=== PATIENT | male | born 1960 | race Asian ===

== ENCOUNTER 2019-05-03 13:27 | Inpatient (IN) | payer OTHER ==
--- OUTSIDE RECORDS SUMMARY | 2019-05-03 13:40 | XMS REPORT | Continuity of Care Document ---
:1960 External Reference #:[id number] Author Name Donald Greenberg M.D. (transmitted by agent of provider Apryl Krishnan) Address [address], [place] [address] Problems Active Problems Provider Date Benign essential hypertension Donald Greenberg M.D. Onset: 01/02/2011 Mixed hyperlipidemia Donald Greenberg M.D. Onset: 01/02/2011 Impaired fasting glycaemia Donald Greenberg M.D. Onset: 07/04/2011 Essential hypertension Donald Greenberg M.D. Onset: 01/27/2015 Type 2 diabetes mellitus Donald Greenberg M.D. Onset: 07/10/2017 Social History Type Date Description Comments Sex Unknown Tobacco Use Start: Unknown Never Smoked Cigarettes ETOH Use 01/05/2013 Rarely consumes alcohol Tobacco Use Start: Unknown Patient has never smoked Smoking Status Reviewed: 04/15/19 Patient has never smoked Exercise Type/Frequency Exercises regularly Exercise Type/Frequency ice hockey 3x/week,walks on occ. Allergies, Adverse Reactions, Alerts Description No Known Drug Allergies Medications Active Medications SIG Qnty Indications Ordering Provider Date Atorvastatin Calcium take 1 tablet by 90tabs E78.2 Donald Greenberg, 02/26 10mg mouth at bedtime M.D. Tablets Ramipril Take 1 Capsule 90caps Donald Greenberg, 11/06/2010 10mg Capsules By Mouth Every M.D. Evening Amlodipine Besylate Take 1 Tablet By 90tabs I10 Donald Greenberg, 2008 10mg Mouth Daily M.D. Tablets Co Q 10 Unknown Centrum Silver Ultra 1 po qd Unknown Mens Tablets Fish Oil 2 po qd Unknown Capsules Medications Administered in Office Medication SIG Qnty Indications Ordering Provider Date Influenza Virus Vaccine Unknown 12/22/2014 Injection Influenza Virus Vaccine Unknown 12/22/2013 Injection Influenza Virus Vaccine Unknown 12/22/2012 Injection Immunizations CPT Code Status Date Vaccine Lot # [id number] Given 12/24/2017 Influenza Virus Vaccine, Quadrivalent, Split, Preservative Free 63094 Given 12/23/2015 Influ Virus Vaccine, Quadrivalent, Split Virus, [place] [address] Given 07/07/2014 Tdap - Tetanus/Diptheria/Acellular Pertussis [id number] 54829 Given 03/26/2004 Td Toxoids Adsorbed For Use 7Yrs Or Older For Intramuscular Use 77647 Given 01/30/2000 Td (History By Patient) 67973 Given Unknown Tetanus And Diptheria (Td) For Adult Use Preservative Free Vital Signs Date Vital Result Comment 04/15/2019 2:14pm Height 66.4 inches 5'6.40" Weight 174.00 lb Heart Rate 77 /min BP Systolic Sitting 132 mmHg BP Diastolic Sitting 83 mmHg BMI (Body Mass Index) 27.7 kg/m2 02/02/2019 9:10am Height 66.4 inches 5'6.40" Weight 176.00 lb Heart Rate 76 /min BP Systolic Sitting 124 mmHg BP Diastolic Sitting 80 mmHg BMI (Body Mass Index) 28.1 kg/m2 Results Description No Information Available Procedures Date Code Description Status 03/10/2019 [id number] Diabetic Retinal Eye Exam Completed 01/02/2018 [id number] Diabetic Retinal Eye Exam Completed 12/30/2013 [id number] Diabetic Retinal Eye Exam Completed 08/16/2011 [id number] Colonoscopy Completed Medical Devices Description No Information Available Encounters Type Date Location Provider Dx Diagnosis Office Visit 02/02/2019 [facility] Donald Greenberg, I10 Essential ( primary) 9:00a [facility] - [facility] SarahDAlicia hypertension E78.2 Mixed hyperlipidemia R73.01 Impaired fasting glucose M25.522 Pain in left elbow Office Visit 01/15/2019 8:30a [facility] Ofelia Jordan M25.522 Pain in left Medicine - [facility] MD elbow Assessments Date Code Description Provider 04/15/2019 K30 Functional dyspepsia Donald Greenberg M.D. 02/02/2019 I10 Essential (primary) hypertension Donald Greenberg M.D. 02/02/2019 E78.2 Mixed hyperlipidemia Donald Greenberg M.D. 02/02/2019 R73.01 Impaired fasting glucose Donald Greenberg M.D. 02/02/2019 M25.522 Pain in left elbow Donald Greenberg M.D. 01/15/2019 M25.522 Pain in left elbow Ofelia Jordan MD Plan of Treatment Future Appointment(s):08/04/2019 9:20 am - [facility] Green[facility] M.D.K30 Functional dyspepsiaNew Xrays:Abdomen/KUB 1 VW, Ordered: 04/15/19 Functional Status Description No Information Available Mental Status Description No Information Available Referrals Description No Information Available
--- OUTSIDE RECORDS SUMMARY | 2019-05-03 13:40 | XMS REPORT | Continuity of Care Document ---
:1960 External Reference #:[id number] Author Name Lauren Moncada NP (transmitted by agent of provider Lexy Felipe ) Address [address] [place] [address] Problems Active Problems Provider Date Benign essential [...] Use Start: Unknown Patient has never smoked Recreational Drug Use Denies Drug Use Smoking Status Reviewed: 05/03/19 Patient has never smoked Exercise Type/Frequency Exercises regularly Exercise Type/Frequency ice hockey 3x/week,walks on occ. Allergies, Adverse Reactions, Alerts Description No Known Drug Allergies Medications Active Medications SIG Qnty Indications Ordering Date Provider Atorvastatin Calcium take 1 tablet by 90tabs E78.2 Donald Matamoros 02/26/2013 mouth at bedtime Jane Greenberg 10mg Tablets Ramipril Take 1 Capsule By 90caps Donald Matamoros 11/06/2010 10mg Capsules Mouth Every Jane Greenberg Evening Amlodipine Besylate Take 1 Tablet By 90tabs I10 Donald Matamoros 11/25/2008 Mouth Daily Jane Greenberg 10mg Tablets Co Q 10 Unknown Centrum Silver Ultra 1 po qd Unknown Mens Tablets Fish Oil 2 po qd Unknown Capsules Prilosec OTC take one tab by Unknown 20mg mouth daily while Tablets DR taking prednisone Simethicone one by mouth every Unknown 125mg 6hours Capsules Medications Administered in Office Medication SIG Qnty Indications Ordering Provider Date Influenza Virus Vaccine Unknown 12/22/2014 Injection Influenza Virus Vaccine Unknown 12/22/2013 Injection Influenza Virus Vaccine Unknown 12/22/2012 Injection Immunizations CPT Code Status Date Vaccine Lot # [id number] Given 12/24/2017 Influenza Virus Vaccine, Quadrivalent, Split, Preservative Free 15348 Given 12/23/2015 Influ Virus Vaccine, Quadrivalent, Split Virus, [place] [address] Given 07/07/2014 Tdap - Tetanus/Diptheria/Acellular Pertussis [id number] 72171 Given 03/26/2004 Td Toxoids Adsorbed For Use 7Yrs Or Older For Intramuscular Use 21201 Given 01/30/2000 Td (History By Patient) 10931 Given Unknown Tetanus And Diptheria (Td) For Adult Use Preservative Free Vital Signs Date Vital Result Comment 05/03/2019 12:07pm Height 66.4 inches 5'6.40" Weight 151.00 lb Heart Rate 105 /min BP Systolic 131 mmHg BP Diastolic 88 mmHg Respiratory Rate 16 /min O2 % BldC Oximetry 98 % BMI (Body Mass Index) 24.1 kg/m2 04/28/2019 3:10pm Height 66.4 inches 5'6.40" Weight 160.50 lb Heart Rate 78 /min BP Systolic Sitting 149 mmHg BP Diastolic Sitting 88 mmHg O2 % BldC Oximetry 96 % BMI (Body Mass Index) 25.6 kg/m2 Results Test Acquired Date Facility Test Result H/L Range Note CBC Auto 04/28/2019 [facility] White Blood 6.6 10^3/uL Normal 3.5-10.[address] [place] [address] [phone] Red Blood Count 5.03 10^6/uL Normal 4.18-5.48 Hemoglobin 15.7 g/dL Normal 14.0-18.0 Hematocrit 44 % Normal 42-52 Mean Corpuscular Volume 88 fL Normal 80-94 Mean Corpuscular Hemoglobin 31 pg Normal 27-31 Mean Corpuscular HGB Conc 36 g/dL Normal 31-36 Red Cell Distribution Width 14 % Normal 10-15 Platelet Count 221 10^3/uL Normal 150-450 Mean Platelet Volume 10.2 fL Normal 7.4-10.4 Abs Neutrophils 3.4 10^3/uL Normal 1.5-7.7 Abs Lymphocytes 2.4 10^3/uL Normal 1.0-4.8 Abs Monocytes 0.6 10^3/uL Normal 0-0.8 Abs Eosinophils 0.1 10^3/uL Normal 0-0.6 Abs Basophils 0.1 10^3/uL Normal 0-0.2 Abs Nucleated RBC 0.0 10^3/uL Granulocyte % 52.2 % Lymphocyte % 36.9 % Monocyte % 8.4 % Eosinophil % 1.7 % Basophil % 0.8 % Nucleated Red Blood Cells % 0.1 Comp Metabolic 04/28/2019 [facility] Sodium 136 mmol/L Normal 135-[address] [place] [address] [phone] Potassium 4.9 mmol/L Normal 3.5-5.0 Chloride 95 mmol/L Low 101-111 Co2 Carbon Dioxide 30 mmol/L Normal 22-32 Anion Gap 11 mmol/L Normal 2-11 Glucose 81 mg/dL Normal 70-100 Blood Urea Nitrogen 28 mg/dL High 6-24 Creatinine 1.22 mg/dL High 0.67-1.17 BUN/Creatinine Ratio 23.0 High 8-20 Calcium 10.5 mg/dL High 8.6-10.3 Total Protein 8.0 g/dL Normal 6.4-8.9 Albumin 4.7 g/dL Normal 3.2-5.2 Globulin 3.3 g/dL Normal 2-4 Albumin/Globulin Ratio 1.4 Normal 1-3 Total Bilirubin 1.00 mg/dL Normal 0.2-1.0 Alkaline Phosphatase 88 U/L Normal 34-104 Alt 29 U/L Normal 7-52 Ast 26 U/L Normal 13-39 Egfr Non- 61.0 >60 Egfr 73.8 >60 1 Laboratory test 04/28/2019 [facility] C Reactive < 1.00 Normal <8.[address] Protein mg/[place] [address] [phone] Erythrocyte Sed Rate 25 mm/Hr High 0-19 1 Because ethnic data is not always readily available, this report includes an eGFR for both -Americans and non- Americans. The National Kidney Disease Education Program (NKDEP) does not endorse the use of the MDRD equation for patients that are not between the ages of 18 and 70, are , have extremes of body size, muscle mass, or nutritional status, or are non- or non-. According to the National Kidney Foundation, irrespective of diagnosis, the stage of the disease is based on the level of kidney function: Stage Description GFR(mL/min/1.73 m(2)) 1 Kidney damage with normal or decreased GFR 90 2 Kidney damage with mild decrease in GFR 60-89 3 Moderate decrease in GFR 30-59 4 Severe decrease in GFR 15-29 5 Kidney failure <15 (or dialysis) Procedures Date Code Description Status 03/10/2019 [id number] Diabetic Retinal Eye Exam Completed 01/02/2018 [id number] Diabetic Retinal Eye Exam Completed 12/30/2013 [id number] Diabetic Retinal Eye Exam Completed 08/16/2011 [id number] Colonoscopy Completed Medical Devices Description No Information Available Encounters Type Date Location Provider Dx Diagnosis Office Visit 04/28/2019 [facility] Donald Matamoros R11.2 Nausea with 3:00p Randall Greenberg M.D. vomiting, unspecified Office Visit 04/15/2019 [facility] Donald Matamoros K30 Functional dyspepsia 2:00p Randall Greenberg M.D. Office Visit 02/02/2019 [facility] Donald Matamoros I10 Essential (primary) 9:00a Randall Greenberg M.D. hypertension E78.2 Mixed hyperlipidemia R73.01 Impaired fasting glucose M25.522 Pain in left elbow Office Visit 01/15/2019 8:30a [facility] Ofelia Jordan M25.522 Pain in left Medicine - [facility] SCOTT elbow Assessments Date Code Description Provider 04/28/2019 R11.2 Nausea with vomiting, unspecified Donald Greenberg M.D. 04/15/2019 K30 Functional dyspepsia Donald Greenberg M.D. 02/02/2019 I10 Essential (primary) hypertension Donald Greenberg M.D. 02/02/2019 E78.2 Mixed hyperlipidemia Donald Greneberg M.D. 02/02/2019 R73.01 Impaired fasting glucose Donald Greenberg M.D. 02/02/2019 M25.522 Pain in left elbow Donald Greenberg M.D. 01/15/2019 M25.522 Pain in left elbow Ofelia Jordan MD Plan of Treatment Future Appointment(s):08/04/2019 9:20 am - Donald Greenberg M.D. at [facility] Internal Medicine - [facility] Functional Status Description No Information Available Mental Status Description No Information Available Referrals Refer to Dr Reason for Referral Status Appt Date Macario Pérez MD New N/V, bloating sx noted hours after meals. Sent 2019 (+) resultant decreased appetite and weight loss [address] [facility] [place] [id number] [phone]
--- OUTSIDE RECORDS SUMMARY | 2019-05-03 13:40 | XMS REPORT | Continuity of Care Document ---
:1960 External Reference #:[id number] Author Name Donald Greenberg M.D. (transmitted by agent of provider Alana Mederos) Address [address], [place] [address] Problems Active Problems Provider Date Benign essential [...] Patient has never smoked Smoking Status Reviewed: 04/28/19 Patient has never smoked Exercise Type/Frequency Exercises [...] CPT Code Status Date Vaccine Lot # [id number] Given 12/24/2017 Influenza Virus Vaccine, Quadrivalent, Split, Preservative Free 23391 Given 12/23/2015 Influ Virus Vaccine, Quadrivalent, Split Virus, [place] [address] Given 07/07/2014 Tdap - Tetanus/Diptheria/Acellular Pertussis [id number] 10983 Given 03/26/2004 Td Toxoids Adsorbed For Use 7Yrs Or Older For Intramuscular Use 92482 Given 01/30/2000 Td (History By Patient) 16707 Given Unknown Tetanus And Diptheria (Td) For Adult Use Preservative Free Vital Signs Date Vital Result Comment 04/28/2019 3:10pm Height 66.4 inches 5'6.40" Weight 160.50 lb Heart Rate 78 /min BP Systolic Sitting 149 mmHg BP Diastolic Sitting 88 mmHg O2 % BldC Oximetry 96 % BMI (Body Mass Index) 25.6 kg/m2 04/15/2019 2:14pm Height 66.4 inches 5'6.40" Weight 174.00 lb Heart Rate 77 /min BP Systolic Sitting 132 mmHg BP Diastolic Sitting 83 mmHg BMI (Body Mass Index) 27.7 kg/m2 Results Description No Information Available Procedures Date Code Description Status 03/10/2019 [id number] Diabetic Retinal Eye Exam Completed 01/02/2018 [id number] Diabetic Retinal Eye Exam Completed 12/30/2013 [id number] Diabetic Retinal Eye Exam Completed 08/16/2011 [id number] Colonoscopy Completed Medical Devices Description No Information Available Encounters Type Date Location Provider Dx Diagnosis Office Visit 02/02/2019 [facility] Internal Donald Greenberg, I10 Essential ( primary) 9:00a Medicine - [facility]y Lara hypertension E78.2 Mixed hyperlipidemia R73.01 Impaired fasting glucose M25.522 Pain in left elbow Office Visit 01/15/2019 8:30a [facility] Internal Ofelia Jordan M25.522 Pain in left Medicine - [facility] elbow Assessments Date Code Description Provider 04/28/2019 [...] 9:20 am - Donald [facility] Donald Greenberg M.D.R11.2 Nausea with vomiting, unspecifiedReferral:Macario Pérez MD, Gastroenterology Functional Status Description No Information Available Mental Status Description No Information Available Referrals Refer to Reason for Referral Status Appt Date Macario Pérez MD Created [address] [place] [address] [phone]
[2019-05-03] MEDS ORDERED: Ondansetron INJ* 2 MG/ML VIAL IV ONE ×2 (15:04→15:14)
[2019-05-03] MEDS ORDERED: NS 0.9% 1000 ML** 1,000 ML IV ONE ×2 (15:04→17:01)
--- NOTE | 2019-05-03 15:21 | ED ---
Nausea/Vomiting/Diarrhea HPI - HPI Summary HPI Summary: Patient complains of persistent nausea and vomiting 2.5 weeks, 23 pound weight loss in 2.5 weeks. Rarely able to tolerate fluids or solids. Also states no substantial BM in 2 weeks. Patient was evaluated by GI today who sent patient to ED for further evaluation of possible dehydration and bowel obstruction. Denies fever, cough, sore throat, CP, SOB, abdominal pain, change in urine, penile or testicular symptoms. Denies prior history of constipation. Medical history is borderline DM with no medications, HDL, HTN. Abdominal surgical history is none. - History of Current Complaint Chief Complaint: EDGeneral Stated Complaint: VOMITING/POSS BOWEL OBSTRUCTION PER PT Time Seen by Provider: 05/03/19 14:57 Hx Obtained From: Patient Onset/Duration: Gradual Onset, Lasting Weeks Timing: Constant Severity Currently: None Pain Intensity: 0 Pain Scale Used: 0-10 Numeric Aggravating Factor(s): Food Alleviating Factor(s): Nothing - Allergies/Home Medications Allergies/Adverse Reactions: Allergies Allergy/AdvReac Type Severity Reaction Status Date / Time No Known Allergies Allergy Verified 05/03/19 15:34 Home Medications: Home Medications Atorvastatin* [Lipitor*] 10 mg PO DAILY 05/03/19 [History Confirmed 05/03/19] Ramipril CAP* [Altace CAP*] 10 mg PO DAILY 05/03/19 [History Confirmed 05/03/19] amLODIPine TAB* [Norvasc 5 mg TAB*] 10 mg PO DAILY 05/03/19 [History Confirmed 05/03/19] PMH/Surg Hx/FS Hx/Imm Hx Endocrine/Hematology History: Denies: Hx Anticoagulant Therapy Cardiovascular History: Denies: Hx Pacemaker/ICD History: Denies: Hx Dialysis Sensory History: Denies: Hx Eye Prosthesis Opthamlomology History: Denies: Hx Legally Blind EENT History: Denies: Hx Deafness Neurological History: Denies: Hx Dementia Infectious Disease History: No Infectious Disease History: Denies: Traveled Outside the [place] in Last 30 Days - Family History Known Family History: Positive: Non-Contributory - Social History Alcohol Use: Occasionally Hx Substance Use: No Hx Tobacco Use: No Review of Systems Constitutional: Negative Eyes: Negative ENT: Negative Cardiovascular: Negative Respiratory: Negative Positive: Vomiting, Nausea Genitourinary: Negative Musculoskeletal: Negative Skin: Negative Neurological/Mental Status: Negative Psychological: Normal All Other Systems Reviewed And Are Negative: Yes Physical Exam Triage Information Reviewed: Yes Vital Signs On Initial Exam: Initial Vitals Temp Pulse Resp BP Pulse Ox 97.6 F 110 16 103/86 95 05/03/19 13:29 05/03/19 13:29 05/03/19 13:29 05/03/19 13:29 05/03/19 13:29 Vital Signs Reviewed: Yes Appearance: Positive: Well-Appearing Skin: Positive: Warm Head/Face: Positive: Normal Head/Face Inspection Eyes: Positive: Normal ENT: Positive: Normal ENT inspection Neck: Positive: Supple Respiratory/Lung Sounds: Positive: Clear to Auscultation Cardiovascular: Positive: Normal Abdomen Description: Positive: Nontender Musculoskeletal: Positive: Normal Neurological: Positive: Normal Psychiatric: Positive: Normal AVPU Assessment: Alert - [place] Coma Scale Best Eye Response: 4 - Spontaneous Best Motor Response: 6 - Obeys Commands Best Verbal Response: 5 - Oriented Coma Scale Total: 15 Procedures - Sedation Patient Received Moderate/Deep Sedation with Procedure: No Diagnostics - Vital Signs Vital Signs Temp Pulse Resp BP Pulse Ox 05/03/19 13:29 97.6 F 110 16 103/86 95 - Laboratory Result Diagrams: 05/04/19 05:35 05/04/19 05:35 Lab Statement: Any lab studies that have been ordered have been reviewed, and results considered in the medical decision making process. Naus/Vom/Diarrhea Course/Dx - Course Course Of Treatment: Patient complains of persistent nausea and vomiting 2.5 weeks, 23 pound weight loss in 2.5 weeks. Rarely able to tolerate fluids or solids. Also states no substantial BM in 2 weeks. Patient was evaluated by GI today who sent patient to ED for further evaluation of possible dehydration and bowel obstruction. Denies fever, cough, sore throat, CP, SOB, abdominal pain, change in urine, penile or testicular symptoms. Denies prior history of constipation. Medical history is borderline DM with no medications, HDL, HTN. Abdominal surgical history is none. Vital signs within normal limits. Creatinine 1.87, new-onset. Anion gap 14. Lipase 222. Labs otherwise within normal limits considering dehydration. CT abdomen and pelvis positive for gastric outlet obstruction secondary to mass in the distal antrum and pyloric region. Hepatic lesion consistent with a hemangioma. Hepatic steatosis. Admitted. - Differential Dx/Diagnosis Provider Diagnosis: Abdominal mass, Acute kidney injury, Dehydration, Gastric outlet obstruction Condition At Discharge: Stable Discharge ED - Sign-Out/Discharge Documenting (check all that apply): Patient Departure - Discharge Plan Condition: Stable Disposition: ADMITTED TO [facility] - Billing Disposition and Condition Condition: STABLE Disposition: Admitted to [facility]
[2019-05-03 15:28] LABS: ABS Eosinophils 0.1 10^3/ul (0-0.6); ABS Lymphocytes 1.8 10^3/ul (1.0-4.8); ABS Monocytes 0.6 10^3/ul (0-0.8); ABS Neutrophils 5.1 10^3/ul (1.5-7.7); Eosinophil % 0.7 %; Hematocrit 47 % (42-52); Hemoglobin 17.2 g/dL (14.0-18.0); Lymphocyte % 23.9 %; Mean Corpuscular HGB Conc 37 g/dL (31-36); Mean Corpuscular Hemoglobin 32 pg (27-31); Mean Corpuscular Volume 87 fL (80-94); Nucleated Red Blood Cells % 0.2; Platelet Count 232 10^3/uL (150-450); Red Blood Count 5.44 10^6 /uL (4.18-5.48); Red Cell Distribution Width 14 % (10-15); White Blood Count 7.6 10^3/uL (3.5-10.8)
[2019-05-03 15:42] LABS: Albumin 5.3 g/dL (3.2-5.2); Albumin/Globulin Ratio 1.3 (1-3); BUN/Creatinine Ratio 36.9 (8-20); C Reactive Protein 2.16 mg/L (<8.01); Calcium 10.4 mg/dL (8.6-10.3); EGFR African American 45.1 (>60); EGFR Non-African American 37.3 (>60); Globulin 4.1 g/dL (2-4); Potassium 4.4 mmol/L (3.5-5.0); Total Protein 9.4 g/dL (6.4-8.9)
[2019-05-03] MEDS ORDERED: Iodixanol* (CONTRAST) 320 MG/ML 100 ML SDV IV ONE (16:05)
[2019-05-03 17:18] LABS: Urine Appearance Cloudy; Urine Bilirubin Negative (Negative); Urine Blood Negative (Negative); Urine Color Yellow; Urine Glucose Negative (Negative); Urine Ketones 1+ (Negative); Urine Nitrite Negative (Negative); Urine Protein 1+(30 mg/dL) (Negative); Urine Specific Gravity 1.023 (1.010-1.030); Urine Urobilinogen Negative (Negative)
[2019-05-03 17:19] LABS: Urine Bacteria Absent (Absent); Urine Red Blood Cell 1+(3-5/hpf) (Absent); Urine White Blood Cell Trace(0-5/hpf) (Absent)
[2019-05-03] MEDS ORDERED: Ondansetron INJ* 2 MG/ML VIAL IV PRN (19:25)
[2019-05-03] MEDS ORDERED: NS 0.9% 1000 ML** 1,000 ML IV SCH (19:30)
[2019-05-03 19:53] LABS: Activated Partial Thrombo Time 27.6 seconds (26.0-38.0); INR 1.14 (0.82-1.09)
[2019-05-03] MEDS ORDERED: Lorazepam PYXIS KEY PRN ×2 (19:53→20:17)
[2019-05-03] MEDS ORDERED: LORazepam INJ* 2 MG/ML 1 ML VIAL IV ONE (19:53)
[2019-05-03] MEDS ORDERED: Lorazepam PYXIS KEY ONE (19:59)
[2019-05-03] MEDS ORDERED: Pantoprazole IV* 40 MG IV SCH (20:00)
--- NOTE | 2019-05-03 21:30 | HP ---
CC: Dr. Greenberg; Dr. Kwan; Dr. Rosas * HISTORY AND PHYSICAL: DATE OF ADMISSION: 05/03/19 PRIMARY CARE PROVIDER: Dr. Greenberg. CONSULTING GASTROENTEROLOGISTS: Dr. Kwan and Dr. Rosas. ATTENDING PHYSICIAN WHILE IN THE HOSPITAL: Dr. Vargas * (report dictated by Sumanth Gimenez NP). CHIEF COMPLAINT: 1. Nausea. 2. Vomiting. 3. Weight loss. HISTORY OF PRESENTING ILLNESS: Mr. Gómez is a 59-year-old male patient who carries a history of hypertension, hyperlipidemia, and borderline diabetes, who states that since the middle of March, he has been having intermittent abdominal distention and bloating particularly worse after he eats and he has noted that in the last few weeks he has not really been able to keep anything down in the form of fluid or solid. He had been seen by his primary. He had had x-rays obtained, which were unrevealing. He was seen by GI today. They were concerned because of the fact that since March his weight was 174 pounds and then today is 151 pounds and despite his attempts to stay hydrated with p.o. liquids he has been unable to do that. He was sent in from the GI clinic for evaluation. He denies any abdominal pain with the exception when he goes to eat or when he drinks fluids he does feel significantly bloated and distended and he again did admit to a significant weight loss. He denies any nausea right now and he denies having any abdominal discomfort at this moment. He said that he vomited during the CT scanning. He states that he denies having any chest pain or shortness of breath and denies any recent fevers or chills. He came in and was evaluated. He was found to have a gastric outlet obstruction due to a mass and because of this, we were asked to evaluate for admission. PAST MEDICAL HISTORY: Significant for: 1. Hyperlipidemia. 2. Hypertension. 3. Borderline diabetes. PAST SURGICAL HISTORY: He has had knee arthroscopy. ALLERGIES TO MEDICATIONS: Include no known drug allergies. FAMILY HISTORY: His mother with diabetes and his father has a history of prostate cancer. SOCIAL HISTORY: He does not smoke. He rarely drinks alcohol. Surrogate decision maker is his . He works at [employer]. He is active playing hockey. REVIEW OF SYSTEMS: There is no documented fever. There was a significant weight change. He denied having any double vision. There was no ear discharge. He denied having any rhinorrhea. No sore throat, no thyroid enlargement. Denied any chest pain. There was no orthopnea, no nocturnal dyspnea. There is abdominal discomfort from the HPI in addition to this with nausea and vomiting. There was no dysuria, no frequency. No seizure, no loss of consciousness. No pruritus and no skin ulcerations. Review of 14 systems completed, all others were negative. PHYSICAL EXAMINATION GENERAL: At this time, Mr. Gómez is a 59-year-old male patient; he is sitting in the ED stretcher. He does not appear to be in any acute distress. VITAL SIGNS: Blood pressure 146/92 with a pulse of 85, respirations were 18, O2 sat 98%, temperature 97.6. HEENT: Head: Atraumatic and normocephalic. Eyes: EOMs are intact. Sclerae were anicteric and not pale. Throat: Oral mucosa appears to be moist. No oropharyngeal erythema. NECK: Supple. LUNGS: Clear to auscultation bilaterally. No wheezes, rales, or rhonchi. HEART: Sounds S1, S2. He had a regular rate and rhythm. No murmurs, rubs, or gallops. ABDOMEN: Actually soft. Bowel sounds hypoactive. It was nontender. EXTREMITIES: Pulses were 2+ throughout. He is moving all 4 extremities with 5/ 5 strength. NEUROLOGICAL: The patient is awake, he is alert, he is oriented x3. His speech is clear. Tongue midline. Assembler Tester were equal. He had no gross focal deficits. SKIN: Intact. DIAGNOSTIC STUDIES/LAB DATA: Today revealed a WBC of 7.6, RBC of 5.44, hemoglobin of 17.2, hematocrit 47, and a platelet count of 232. His sodium was 132, potassium 4.4, chloride of 88, bicarb was 30, BUN 69, creatinine 1.87. His baseline creatinine is right around 1.1. His glucose is 126, lactate 1.1, calcium 10.4. Total bili 1.0, AST 26, ALT 28, alk phos 89. CRP 2.6. Albumin 5.3, lipase of 222. Urine showed 1+ protein, 1+ ketones, 1+ bacteria, present hyaline casts. CT abdomen and pelvis impression: 1. Gastric outlet obstruction, which is secondary to a mass in the distal antrum and pyloric region. Recommend NG tube placement. GI consultation and endoscopy for further evaluation. 2. Hepatic lesion most consistent with a hemangioma. 3. Hepatic steatosis. Old medical records were reviewed. ASSESSMENT AND PLAN: Mr. Gómez is a 59-year-old male patient coming into the emergency department today with complaints of again nausea, vomiting, abdominal distention, after eating going on for about 3 to 4 weeks. He went to the Gastroenterology doctor today. They were concerned for possible dehydration and in the fact that he has had over 20- pound weight loss and was sent to the hospital here. It was noted that he had a gastric outlet obstruction due to a mass, also was noted to be in acute renal failure. He will be admitted under inpatient status for: 1. Acute renal failure. I suspect this is probably prerenal in nature. He had been on an NIR inhibitor, in addition to this also has not been eating or drinking. I will check a FENa. I will hydrate him and we will repeat labs in the morning. If it is not improving, certainly we will have a low threshold for a consult with Nephrology. 2. Gastrointestinal mass with outlet obstruction. I discussed the case with Dr. Rosas and he will be evaluating the patient tomorrow. The plan would be for an nasogastric tube tonight. I will make him n.p.o. We will place the nasogastric tube to low wall suction. Because he is n.p.o., I will place him on Protonix. The plan will be for an upper endoscopy tomorrow. 3. Hypertension. I will hold his medications if needed. His blood pressure has been stable. If needed, we will treat him with p.r.n. antihypertensives. 4. Hyperlipidemia. When we are able, we will restart his Lipitor. 5. Borderline diabetes. Follow up with primary care physician. 6. DVT prophylaxis. He is high risk. He will be placed on heparin subcutaneous. 7. Fluid, electrolytes, and nutrition. Again, I will hydrate him with normal saline at 125 an hour. We will repeat his lipase tomorrow morning after hydration and n.p.o. status. We will continue to follow his BUN and creatinine. 8. Code status. Full code. TIME SPENT: On the admission was approximately 60 minutes, greater than half the time was spent [id number] with the patient obtaining my history and physical. Other half of the time was spent going over the plan of care with the patient and implementing the plan of care. I did discuss the plan of care with my attending, Dr. Vargas; he is in agreement. SUMANTH GIMENEZ, FOURDRINIER WIRE WEAVER [id number]/[facility] #: [id number] HERMAN
[2019-05-03] MEDS: Heparin VIAL(*) 5000 UNITS/ML VIAL (FIVE THOUSAND) SUBCUT SCH (21:51)
[2019-05-03] MEDS ORDERED: Lidocaine 2% VISCOUS* 15 ML UDC SWISH SPIT ONE (23:27)
[2019-05-04] MEDS: LORazepam INJ* 2 MG/ML 1 ML VIAL IV PUSH PRN ×3 (01:27→19:22)
[2019-05-04] MEDS ORDERED: Lidocaine 2% VISCOUS* 15 ML UDC SWISH SPIT ONE (04:59)
[2019-05-04] MEDS: Heparin VIAL(*) 5000 UNITS/ML VIAL (FIVE THOUSAND) SUBCUT SCH (05:35)
[2019-05-04 06:04] LABS: ABS Eosinophils 0.1 10^3/ul (0-0.6); ABS Lymphocytes 2.2 10^3/ul (1.0-4.8); ABS Monocytes 0.6 10^3/ul (0-0.8); ABS Neutrophils 3.8 10^3/ul (1.5-7.7); Eosinophil % 1.4 %; Hematocrit 40 % (42-52); Hemoglobin 14.4 g/dL (14.0-18.0); Mean Corpuscular HGB Conc 36 g/dL (31-36); Mean Corpuscular Hemoglobin 31 pg (27-31); Mean Corpuscular Volume 87 fL (80-94); Mean Platelet Volume 9.3 fL (7.4-10.4); Nucleated Red Blood Cells % 0.1; Platelet Count 199 10^3/uL (150-450); Red Blood Count 4.63 10^6 /uL (4.18-5.48); Red Cell Distribution Width 13 % (10-15); White Blood Count 6.7 10^3/uL (3.5-10.8)
[2019-05-04 06:27] LABS: BUN/Creatinine Ratio 36.1 (8-20); Calcium 8.5 mg/dL (8.6-10.3); EGFR African American 66.8 (>60); EGFR Non-African American 55.2 (>60); Potassium 3.9 mmol/L (3.5-5.0)
--- NOTE | 2019-05-04 10:23 | PN ---
Subjective Date of Service: 05/04/19 Interval History: HOSPITALIST PROGRESS NOTE Patient seen and examined at bedside. Care reviewed and d/w Sarika Green RN. He feels a little better this AM. Denies abdominal pain, nausea. No BM, but thinks he passed flatus. Feels hungry, would really like to eat something. He states he was in his usual state of health until early March, when he started to have some indigestion. Before that appetite was good and he denies any digestive issues. Family originally from [facility] - grandfather had liver cancer, uncle had colon cancer with liver mets, and another uncle had biliary tumor. Family History: Findings - See above Social History: Unchanged from Admission Past Medical History: Unchanged from Admission Objective Active Medications: Sodium Chloride (Ns 0.9% 1000 Ml) 1,000 mls @ 125 mls/hr IV PER RATE SANJANA Potassium Cl/Dextrose/Lact Ringer's (D5lr 20 Meq Kcl 1000 Ml Bag*) 1,000 mls @ 100 mls/hr IV PER RATE SANJANA Lorazepam (Ativan Inj*) 0.5 mg IV PUSH Q4H PRN PRN Reason: ANXIETY Last Admin: 05/04/19 10:06 Dose: 0.5 mg Miscellaneous (Ativan Pyxis Devi) 1 ea N/A .ATIVAN IV DEVI PRN PRN Reason: PYXIS DEVI Ondansetron HCl (Zofran Inj*) 4 mg IV Q6H PRN PRN Reason: NAUSEA Pantoprazole Sodium (Protonix Iv*) 40 mg IV Q24H [facility] Last Admin: 05/03/19 21:51 Dose: 40 mg Vital Signs - 8 hr 05/04/19 05/04/19 05/04/19 02:58 03:15 07:15 Temperature 97.7 F 97.7 F Pulse Rate 73 68 Respiratory 16 14 16 Rate Blood Pressure 129/67 104/66 (mmHg) O2 Sat by Pulse 98 99 Oximetry 05/04/19 05/04/19 08:00 10:06 Temperature Pulse Rate Respiratory 15 15 Rate Blood Pressure (mmHg) O2 Sat by Pulse Oximetry Appearance: Pleasant middle aged gentleman, appears younger than stated age, sitting up in bed in NAD Eyes: No Scleral Icterus Ears/Nose/Mouth/Throat: Mucous Membranes Moist Neck: Trachea Midline Respiratory: Symmetrical Chest Expansion and Respiratory Effort, Clear to Auscultation Cardiovascular: RRR - Normal S1 and S2 Abdominal: NL Sounds; No Tenderness; No Distention Extremities: No Edema Neurological: Alert and Oriented x 3, NL Muscle Strength and Tone Result Diagrams: 05/04/19 05:35 05/04/19 05:35 Assess/Plan/Problems-Billing Assessment: Mr Gómez is a 59yo M with PMH of HTN, HLD, glucose intolerance, who presented to ED with c/o recurrent N/V, > 20 lbs weight loss, found to have gastric outlet obstruction. - Patient Problems (1) Gastric outlet obstruction Comment: - Seen on CT. - Has family history of GI malignancies. - Concernd for gastric CA - plan for EGD today and plan will depend on findings. As his symptoms are fairly acute, he could have a pyloric ulcer with significant inflammation, but malignancy is first on his differential. - Patient is concerned he may have a foreign body causing the obstruction, as he describes eating a lot of hard cheeses and nuts. He may have a partial gastric outlet obstruction that progressed to a complete obstruction due to a bezoar, but CT didn't show any. - Continue IVF and supportive treatment. (2) ALTON (acute kidney injury) Comment: - Pre renal in the setting of dehydration - improving. - Continue IVF. (3) Anxiety Comment: - Continue Lorazepam PRN. (4) DVT prophylaxis Comment: - Heparin on hold for EGD/biopsy. - SCDs for now. (5) Full code status Status and Disposition: Inpatient. updated at bedside.
[2019-05-04] MEDS: D5LR 20 MEQ KCL 1000 ML BAG* 1,000 ML IV SCH (11:48)
[2019-05-04] MEDS ORDERED: Buffered Lidocaine 1% SYRIN* 1 ML/SYRINGE INTRADERM ONE (12:34)
[2019-05-04] MEDS ORDERED: Rocuronium* 10 MG/ML VIAL ONE (13:38)
[2019-05-04] MEDS ORDERED: Propofol* 10 MG/ML 20 ML BTL ONE (14:15)
[2019-05-04] MEDS ORDERED: Lidocaine 2% PF * 5 ML VIAL ONE (14:15)
[2019-05-04] MEDS ORDERED: Dexamethasone IV* 4 MG/ML 1 ML (4 MG) ONE (14:15)
[2019-05-04] MEDS ORDERED: Succinylcholine* 20 MG/ML 10 ML VIAL ONE (14:15)
[2019-05-04] MEDS ORDERED: Ondansetron INJ* 2 MG/ML VIAL ONE (14:15)
[2019-05-04] MEDS ORDERED: Midazolam* 1 MG/ML 2 ML VIAL (2 MG) ONE (14:16)
[2019-05-04] MEDS ORDERED: fentaNYL* 50 MCG/ML 2 ML VIAL (100 MCG VIAL) ONE (14:16)
[2019-05-04] MEDS ORDERED: Naloxone* 0.4 MG/ML 1 ML VIAL IV PRN (14:36)
[2019-05-04] MEDS ORDERED: DiMENhydriNATE IV* 50 MG/ML VIAL IV PUSH PRN (14:36)
[2019-05-04] MEDS ORDERED: fentaNYL* 50 MCG/ML 2 ML VIAL (100 MCG VIAL) IV PRN (14:36)
--- NOTE | 2019-05-04 15:42 | PN ---
Progress Note - Progress Note Date of Service: 05/04/19 Note: GI EGD Brief Note E: nml G: collins gastritis, 6-7cm raised, friable mass in antrum/peripyloric. 1cm ulcer in center pit. Bx extensively. Unable to pass adult EGD scope, XP 5.5mm scope passed through pylorus D: nml Bx also taken for H Pylori and metaplasia in gastric fundus. Plan: Surgical and Oncology evaluation Await results of bx. PPI IV BID. NG replaced during procedure, will check xray. Hugh Kwan DO 05/04/19 0611
--- NOTE | 2019-05-04 20:05 | CONS ---
CC: Dr. Donald Greenberg * CONSULTATION REPORT: DATE OF CONSULT: 05/04/19 REQUESTING PROVIDER: Gabriel Gimenez NP REASON FOR CONSULT: Abnormal CAT scan, gastric outlet obstruction. HISTORY OF PRESENT ILLNESS: This is a very pleasant 59-year-old male with a history of hypertension, hyperlipidemia, who states since March he has been having abdominal discomfort and bloating, worse after eating. He has not been able to keep significant amounts of food down and admits to a significant weight loss of about 20 pounds in the last month or so. He denies any rahul melena or hematochezia. Denies any fever, chills, or rigors. He does have nausea and emesis after eating and states he has been unable to tolerate p.o. for the last few days. He denies any dysphagia or odynophagia. Denies any skin rash or lesions. Denies any typical GERD or dyspepsia. Denies any diarrhea or constipation. Denies any rahul abdominal pain at this time. The remainder of the 14-point review of systems is grossly negative except for as described in the HPI. PAST MEDICAL HISTORY: Hyperlipidemia, hypertension, prediabetes. PAST SURGICAL HISTORY: Knee arthroscopy. HOME MEDICATIONS: Include: 1. Amlodipine. 2. Atorvastatin. 3. Ramipril. ALLERGIES TO MEDICATIONS: No known drug allergies. FAMILY HISTORY: No family history of GI cancer, inflammatory bowel disease, or gastric cancer. SOCIAL HISTORY: Does not smoke. Rarely drinks alcohol. . Works at [employer]. He is originally from [facility]. REVIEW OF SYSTEMS: Remainder of the 14-point review of systems is grossly negative except for as described in the HPI. PHYSICAL EXAM: Vital Signs: Blood pressure is 122/73, pulse is 77, respiratory rate of 16, he is 99% on room air, temperature is 97.2. In general , alert and oriented x3, in no acute distress. HEENT: Atraumatic, normocephalic. Pupils equal, round, reactive to light. Extraocular movements are intact. Conjunctivae are pink. NG tube is in place and draining brown liquid. Cardiovascular: Regular rate and rhythm. S1, S2. Respiratory: Clear to auscultation bilaterally. Abdomen: Soft, distended. Bowel sounds positive. No guarding or rebound. Extremities: No clubbing, no cyanosis, no edema. DIAGNOSTIC STUDIES/LAB DATA: Hemoglobin is 14.4. INR 1.14. BUN is 48, creatinine 1.33, calcium 8.5. Prealbumin 17. He had a CT of the abdomen and pelvis done on 05/03/19. This showed an antral mass potentially causing gastric outlet obstruction. IMPRESSION AND PLAN: 1. Gastric outlet obstruction. Concern for malignancy or mass based on CT findings. He had nausea and emesis when going to CT. I have concerns for aspiration during endoscopy. I discussed the risks, benefits, and alternatives with both him and his and we will plan on endoscopic evaluation today with general anesthesia providing intubation for airway protection given the gastric outlet obstruction. We discussed the potential etiologies including potentially gastritis H. pylori induced, cancer formation which is more prevalent from focus from [facility]. He also may have an ulcer within this area causing the gastric outlet obstruction. The weight loss is concerning for a malignant process. We will plan on endoscopic evaluation today with anesthesia services. 2. Unintentional weight loss. Concerning for malignant process. 3. Acute renal insufficiency, likely prerenal. Continue with hydration and management per primary team. [id number]/[facility] #: [id number] HERMAN
[2019-05-04] MEDS: Pantoprazole IV* 40 MG IV SCH (21:51)
[2019-05-05] MEDS: D5LR 20 MEQ KCL 1000 ML BAG* 1,000 ML IV SCH ×3 (01:08→16:46)
--- NOTE | 2019-05-05 02:01 | PRO ---
CC: Dr. Donald Greenberg * ESOPHAGOGASTRODUODENOSCOPY REPORT: DATE OF PROCEDURE: 05/04/19 - ROOM #412 PRIMARY CARE PHYSICIAN: Dr. Donald Greenberg. INDICATIONS FOR PROCEDURE: Abnormal CAT scan, gastric outlet obstruction. PROCEDURE PERFORMED: Complete esophagogastroduodenoscopy with biopsies. MEDICATIONS GIVEN: Please anesthesia record. DESCRIPTION OF PROCEDURE: After the EGD procedure including the risks, benefits , and alternatives with the risks not limited to perforation, surgery, missed lesions, and/or were explained to the patient, written informed consent was obtained, IV medication was given, and a bite-block was placed between the teeth. The adult Olympus gastroscope was then inserted into the patient's oropharynx, into the tubular esophagus. The tubular esophagus was normal in appearance. The scope was advanced through the lower esophageal sphincter into the stomach. There was diffuse gastritis noted, and in the antrum, a 6 to 7 cm raised, nodular mass was identified within the antrum. This was partially obstructing the pyloric outlet. I was unable to pass the adult scope through this area in the center of this lesion with a pitted central ulcer about 1 cm in size, no fresh or old blood from that area. On retroflexion, the views showed diffuse gastritis. A biopsy was taken of this for CLOtesting and other biopsies for formalin were taken in the fundus to rule out metaplasia. I then switched an XP scope with a diameter of 5.5 mm and passed this into the stomach. This did allow passage through the stenotic pylorus into the duodenum which was briefly intubated, but did appear normal in appearance. I was unable to proceed deep into the D3 and D4 secondary to the small floppy scope. This was then removed. The patient tolerated the procedure well. An NG tube was reinserted to 55 cm and taped. Brisk return of gastric juices was noted and a chest x-ray was ordered. The patient returned to the recovery room in stable condition. IMPRESSION: 1. Complete esophagogastroduodenoscopy with biopsies. 2. Antral mass, biopsied extensively as above. 3. Diffuse gastritis, biopsied and CLOtested. 4. Gastric outlet obstruction, passage into the duodenum was only possible with pediatric XP scope with a diameter of 5.5. 5. Successful NG tube placement. RECOMMENDATIONS: Await results of biopsies. Recommend surgical and oncology evaluation. Suspect this is likely malignant lesion. Further management to follow pending results. [id number]/[facility] #: [id number] [facility] H[facility]PITAL[facility]ann
[2019-05-05 08:12] LABS: ABS Lymphocytes 1.4 10^3/ul (1.0-4.8); ABS Monocytes 0.5 10^3/ul (0-0.8); ABS Neutrophils 3.7 10^3/ul (1.5-7.7); Eosinophil % 0.4 %; Hematocrit 34 % (42-52); Hemoglobin 12.3 g/dL (14.0-18.0); Lymphocyte % 24.9 %; Mean Corpuscular HGB Conc 36 g/dL (31-36); Mean Corpuscular Hemoglobin 31 pg (27-31); Mean Corpuscular Volume 87 fL (80-94); Mean Platelet Volume 9.1 fL (7.4-10.4); Platelet Count 158 10^3/uL (150-450); Red Blood Count 3.96 10^6 /uL (4.18-5.48); Red Cell Distribution Width 13 % (10-15); White Blood Count 5.7 10^3/uL (3.5-10.8)
[2019-05-05 08:26] LABS: BUN/Creatinine Ratio 27.7 (8-20); Calcium 8.2 mg/dL (8.6-10.3); EGFR African American 91.8 (>60); EGFR Non-African American 75.9 (>60)
[2019-05-05] MEDS: Pantoprazole IV* 40 MG IV SCH ×2 (08:58→20:03)
--- NOTE | 2019-05-05 10:33 | CONSULT ---
Consultation - Reason for Consultation Reason for Consultation: gastric cancer Ordering Provider: Luana Farley Chief Complaint: abdominal pain, nausea and vomiting History of Present Illness: 59 yo M w PMH of HTN, hyperlipidemia, and borderline diabetes with newly discovered gastric mass. Deangelo developed abdominal pain, vomiting, and bloating on . He went to his primary and had an abdominal xray with significant stool and so was recommended to start MOM. He continued to have daily vomiting after any meals and went back to his primary on 04/28 at which point he had lost >15 lbs. He was referred to GI, though he continued to be symptomatic and so came into the ER. CT A/P was notable for gastric outlet obstruction likely related to a mass, with no liver involvement or clear adenopathy. He underwent an upper endoscopy yesterday which confirmed an antral gastric mass with obstruction. This was biopsied and a NG tube was able to be placed. We are being consulted. Of note, they do have connections with [facility] and have reached out to Dr. Duarte who has agreed to accept the patient in transfer if deemed appropriate. He has no family history of gastric cancer or breast cancer. His father had prostate CA. Before this diagnosis he was in very good health and quite robust. Allergies/Medications Medication: Potassium Cl/Dextrose/Lact Ringer's (D5lr 20 Meq Kcl 1000 Ml Bag*) 1,000 mls @ 100 mls/hr IV PER [facility] Last Admin: 05/05/19 01:08 Dose: 100 mls/hr Lorazepam (Ativan Inj*) 0.5 mg IV PUSH Q4H PRN PRN Reason: ANXIETY Last Admin: 05/04/19 19:22 Dose: 0.5 mg Miscellaneous (Ativan Pyxis Kruse) 1 ea N/A .ATIVAN IV KRUSE PRN PRN Reason: PYXIS KRUSE Ondansetron HCl (Zofran Inj*) 4 mg IV Q6H PRN PRN Reason: NAUSEA Pantoprazole Sodium (Protonix Iv*) 40 mg IV Q12H [facility] Last Admin: 05/05/19 08:58 Dose: 40 mg Allergies/Adverse Reactions: Allergies Allergy/AdvReac Type Severity Reaction Status Date / Time No Known Allergies Allergy Verified 05/03/19 15:34 History - Past Medical History Other History: HTN. hyperlipidemia. borderline diabetes. knee arthroscopy - Family History Hx Family Cancer: Yes - father prostateCA - Social History Hx Alcohol Use: No Hx Tobacco Use: No Marital Status: - works at [employer] - Review of Systems General Comments: weight loss, abdominal pain, bloating, otherwise fully negative ROS Physical Exam - Physical Exam Physical Examination: Vital Signs Temp Pulse Resp BP Pulse Ox 97.4 F 62 16 110/62 100 05/05/19 04:23 05/05/19 04:23 05/05/19 04:23 05/05/19 04:23 05/05/19 04:23 sitting up in nad NG tube in place draining bilious liquid cTA bl s1 s2 nl soft, min ttp over midepigastrium no LE edema A+O x 3 nonfocal neurological exam no jovanny Results - Lab Results Lab Results: 05/03/19 05/03/19 05/03/19 15:17 15:17 15:17 WBC 7.6 RBC 5.44 Hgb 17.2 Hct 47 MCV 87 MCH 32 H MCHC 37 H RDW 14 Plt Count 232 MPV 9.0 Neut % (Auto) 66.8 Lymph % (Auto) 23.9 Stanly % (Auto) 8.1 Eos % (Auto) 0.7 Baso % (Auto) 0.5 Absolute Neuts (auto) 5.1 Absolute Lymphs (auto) 1.8 Absolute Monos (auto) 0.6 Absolute Eos (auto) 0.1 Absolute Basos (auto) 0.0 Absolute Nucleated RBC 0.0 Nucleated RBC % 0.2 INR (Anticoag Therapy) APTT Sodium 132 L Potassium 4.4 Chloride 88 L Carbon Dioxide 30 Anion Gap 14 H BUN 69 H Creatinine 1.87 H Est GFR ( Amer) 45.1 Est GFR (Non-Af Amer) 37.3 BUN/Creatinine Ratio 36.9 H Glucose 126 H Lactic Acid 1.1 Calcium 10.4 H Total Bilirubin 1.00 AST 26 ALT 28 Alkaline Phosphatase 89 C-Reactive Protein 2.16 Total Protein 9.4 H Albumin 5.3 H Globulin 4.1 H Albumin/Globulin Ratio 1.3 Prealbumin Lipase 222 H Urine Color Urine Appearance Urine pH Ur Specific [place] Urine Protein Urine Ketones Urine Blood Urine Nitrate Urine Bilirubin Urine Urobilinogen Ur Leukocyte Esterase Urine WBC (Auto) Urine RBC (Auto) Urine Bacteria Hyaline Casts Urine Glucose 0205/03/19 05/04/19 17:00 19:35 05:35 WBC 6.7 RBC 4.63 Hgb 14.4 Hct 40 L MCV 87 MCH 31 MCHC 36 RDW 13 Plt Count 199 MPV 9.3 Neut % (Auto) 56.2 Lymph % (Auto) 33.0 Stanly % (Auto) 8.7 Eos % (Auto) 1.4 Baso % (Auto) 0.7 Absolute Neuts (auto) 3.8 Absolute Lymphs (auto) 2.2 Absolute Monos (auto) 0.6 Absolute Eos (auto) 0.1 Absolute Basos (auto) 0.0 Absolute Nucleated RBC 0.0 Nucleated RBC % 0.1 INR (Anticoag Therapy) 1.14 H APTT 27.6 Sodium Potassium Chloride Carbon Dioxide Anion Gap BUN Creatinine Est GFR ( Amer) Est GFR (Non-Af Amer) BUN/Creatinine Ratio Glucose Lactic Acid Calcium Total Bilirubin AST ALT Alkaline Phosphatase C-Reactive Protein Total Protein Albumin Globulin Albumin/Globulin Ratio Prealbumin Lipase Urine Color Yellow Urine Appearance Cloudy Urine pH 5.0 Ur Specific [place] 1.023 Urine Protein 1+(30 mg/dl) A Urine Ketones 1+ A Urine Blood Negative Urine Nitrate Negative Urine Bilirubin Negative Urine Urobilinogen Negative Ur Leukocyte Esterase Negative Urine WBC (Auto) Trace(0-5/hpf) Urine RBC (Auto) 1+(3-5/hpf) A Urine Bacteria Absent Hyaline Casts Present A Urine Glucose Negative 05/04/19 05/05/19 05/05/19 05:35 07:46 07:46 WBC 5.7 RBC 3.96 L Hgb 12.3 L Hct 34 L MCV 87 MCH 31 MCHC 36 RDW 13 Plt Count 158 MPV 9.1 Neut % (Auto) 65.1 Lymph % (Auto) 24.9 Stanly % (Auto) 9.3 Eos % (Auto) 0.4 Baso % (Auto) 0.3 Absolute Neuts (auto) 3.7 Absolute Lymphs (auto) 1.4 Absolute Monos (auto) 0.5 Absolute Eos (auto) 0.0 Absolute Basos (auto) 0.0 Absolute Nucleated RBC 0.0 Nucleated RBC % 0.0 INR (Anticoag Therapy) APTT Sodium 135 136 Potassium 3.9 4.0 Chloride 100 L 107 Carbon Dioxide 27 24 Anion Gap 8 5 BUN 48 H 28 H Creatinine 1.33 H 1.01 Est GFR ( Amer) 66.8 91.8 Est GFR (Non-Af Amer) 55.2 75.9 BUN/Creatinine Ratio 36.1 H 27.7 H Glucose 84 111 H Lactic Acid Calcium 8.5 L 8.2 L Total Bilirubin AST ALT Alkaline Phosphatase C-Reactive Protein Total Protein Albumin Globulin Albumin/Globulin Ratio Prealbumin 17 L Lipase 196 H Urine Color Urine Appearance Urine pH Ur Specific [place] Urine Protein Urine Ketones Urine Blood Urine Nitrate Urine Bilirubin Urine Urobilinogen Ur Leukocyte Esterase Urine WBC (Auto) Urine RBC (Auto) Urine Bacteria Hyaline Casts Urine Glucose Assessment and Plan Impression: 59 yo M w at least locally advanced gastric cancer causing gastric outlet obstruction. We discussed this at length. We reviewed that the full staging work up should include a chest CT, which I have ordered today. Assuming no obvious evidence of metastatic disease then I completely agree with transfer to [facility] for surgical consultation. Options include J-tube with G-tube for gastric venting, followed by neoadjuvant chemo (or chemoRT) vs. surgery up front. He absolutely should be evaluated for this at a tertiary care center. I have discussed this with his primary team and with Deangelo and his . They are willing to pay for transfer there if necessary. Nutrition: Malnutrition Diagnosis/Plan: Malnutrition Assessment Clinical Characteristics Acute,Severe Malnutrition Assessment: -23 lb, 13.5% wt loss x < 1 mo Criteria -decrease in oral intake (</=50% of ENN x > 5 days) Malnutrition Assessment: Pt is NPO at this time. Will assess need for Interventions nourishments once pt is able to resume po intake . Malnutrition Assessment: Goals 1. pt will tolerate post-op diet progression without adverse GI effects 2. adequate po intake to maintain lean body mass and hydration without add'l wt loss 3. achieve and maintain serum electrolytes levels WNL 4. achieve and maintain regulated bowel pattern without c/o constipation (or diarrhea)
[2019-05-05] MEDS ORDERED: Iodixanol* (CONTRAST) 320 MG/ML 100 ML SDV IV ONE (10:38)
--- NOTE | 2019-05-05 16:18 | PN ---
Subjective Date of Service: 05/05/19 Interval History: HOSPITALIST PROGRESS NOTE Patient seen and examined at bedside. Care reviewed and d/w Sarika Green RN. His only complaint today is of hunger. No further episodes of nausea. Family History: Unchanged from Admission Social History: Unchanged from Admission Past Medical History: Unchanged from Admission Objective Active Medications: Potassium Cl/Dextrose/Lact Ringer's (D5lr 20 Meq Kcl 1000 Ml Bag*) 1,000 mls @ 100 mls/hr IV PER RATE [facility] Last Admin: 05/05/19 01:08 Dose: 100 mls/hr Lorazepam (Ativan Inj*) 0.5 mg IV PUSH Q4H PRN PRN Reason: ANXIETY Last Admin: 05/04/19 19:22 Dose: 0.5 mg Miscellaneous (Ativan Pyxis Devi) 1 ea N/A .ATIVAN IV DEVI PRN PRN Reason: PYXIS DEVI Ondansetron HCl (Zofran Inj*) 4 mg IV Q6H PRN PRN Reason: NAUSEA Pantoprazole Sodium (Protonix Iv*) 40 mg IV Q12H [facility] Last Admin: 05/05/19 08:58 Dose: 40 mg Vital Signs - 8 hr 05/05/19 11:15 Temperature 97.6 F Pulse Rate 71 Respiratory 16 Rate Blood Pressure 138/79 (mmHg) O2 Sat by Pulse 100 Oximetry Oxygen Devices in Use Now: None Appearance: Middle aged gentleman sitting up in bed in NAD Eyes: No Scleral Icterus Ears/Nose/Mouth/Throat: Mucous Membranes Moist Neck: Trachea Midline Respiratory: Symmetrical Chest Expansion and Respiratory Effort, Clear to Auscultation Cardiovascular: RRR - Normal S1 and S2 Abdominal: NL Sounds; No Tenderness; No Distention Neurological: Alert and Oriented x 3, NL Muscle Strength and Tone - Nutrition: Malnutrition Diagnosis/Plan Malnutrition Assessment by Registered Dietitian: Malnutrition Assessment Clinical Characteristics Acute,Severe Malnutrition Assessment: -23 lb, 13.5% wt loss x < 1 mo Criteria -decrease in oral intake (</=50% of ENN x > 5 days) Malnutrition Assessment: Pt is NPO at this time. Will assess need for Interventions nourishments once pt is able to resume po intake . Malnutrition Assessment: Goals 1. pt will tolerate post-op diet progression without adverse GI effects 2. adequate po intake to maintain lean body mass and hydration without add'l wt loss 3. achieve and maintain serum electrolytes levels WNL 4. achieve and maintain regulated bowel pattern without c/o constipation (or diarrhea) Result Diagrams: 05/05/19 07:46 05/05/19 07:46 Assess/Plan/Problems-Billing Assessment: Mr Gómez is a 59yo M with PMH of HTN, HLD, glucose intolerance, who presented to ED with c/o recurrent N/V, > 20 lbs weight loss, found to have gastric outlet obstruction. - Patient Problems (1) Gastric outlet obstruction Comment: - EGD showed 6-7cm antral mass. 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 - CT chest negative for metastatic disease. - Oncology input appreciated. - Patient and family request transfer to [facility] - patient accepted by Dr Nsetor Duarte, awaiting bed availability. - Keep NPO with NGT to LWS. (2) Hemoglobin drop Comment: - Endoscopy showed 6-7cm antral tumor with ulcer, but no signs of bleeding. - Hb was 17 on admission representing severe hemoconcentration, now down to 12, likely secondary to IVF resuscitation. - Will continue to monitor. (3) Severe protein-calorie malnutrition Comment: - Acute Severe Malnutrition as evidenced by 23 lb weight loss in 1 month, and decrease in oral intake (</=50% of ENN x > 5 days). - Prealbumin is 17. - As per d/w surgeon, hemay get a gastric stent first and would be able to eat. (4) ALTON (acute kidney injury) Comment: - Pre renal in the setting of dehydration - resolved. - Continue IVF. (5) Anxiety Comment: - Continue Lorazepam PRN. (6) DVT prophylaxis Comment: - Resume Heparin and continue SCDs. (7) Full code status Status and Disposition: Inpatient.
--- NOTE | 2019-05-05 20:20 | DS ---
CC: Dr. Greenberg; Dr. Kwan; Dr. Noel; Dr. Nestor Duarte [facility] * DISCHARGE SUMMARY/TRANSFER SUMMARY: DATE OF ADMISSION: 05/03/19 TENTATIVE DATE OF TRANSFER: 05/06/19 PRIMARY CARE PROVIDER: Dr. Greenberg. CONSULTING RADIOPHONE OPERATOR: Dr. Kwan. ONCOLOGIST: Dr. Noel. GASTROENTEROLOGY SURGEON: [facility] Phone number is [phone]. DISCHARGE DIAGNOSES: 1. Gastric outlet obstruction secondary to antral tumor, found to be a poorly differentiated adenocarcinoma with signet ring features. 2. Severe protein-calorie malnutrition. 3. Acute kidney injury. SECONDARY DIAGNOSES: 1. Hypertension. 2. Hyperlipidemia. 3. Glucose intolerance. HOSPITAL COURSE: Mr. Gómez is a 59-year-old male with a past medical history as stated above that presented to the emergency room with recurrent nausea, vomiting and a 20-pound weight loss since March. The patient had abdominal distention, bloating followed by nausea and vomiting. For more details about his presentation, I refer you to his history and physical. In the emergency room, the patient had a CT of the abdomen and pelvis with contrast that showed gastric outlet obstruction secondary to a mass in the distal antrum and pyloric region. Hepatic lesion most consistent with a hemangioma and hepatic steatosis. Lymph nodes were not significantly enlarged and there was no mention of ascites or other signs of peritoneal implants. Chest CT with contrast showed no CT evidence for thoracic metastatic disease. Tip of the NG tube is in the gastric body with significant interval decompression of the stomach compared with prior exam. The patient was admitted to the medical floor, seen in consultation by Gastroenterology and taken to an upper endoscopy that showed antral mass in the antrum measuring 6 to 7 cm, raised, nodular with a partially obstructed pyloric outlet. Dr. Kwan was unable to pass the adult scope through this area. In the center of the lesion, there also had a pitted central ulcer about 1 cm in size with no fresh or old blood from the area. He was able to pass a pediatric scope and the duodenum entered and appeared to have a normal appearance. The patient was seen in consultation by Oncology (Dr. Noel) and her impression is that the patient has at least locally advanced gastric cancer causing gastric outlet obstruction. She reviewed the diagnosis at length and also options including J-tube for feeding with G-tube for gastric venting followed by neoadjuvant chemo or chemoradiation versus surgery. Dr. Noel felt that he should be evaluated for this at a Tertiary Care Center and the patient and his family were interested in seeing Dr. Duarte at [facility] and had actually already contacted him prior to Dr. Noel's evaluation. The patient was accepted by Dr. Duarte and is now awaiting bed availability for transfer. PHYSICAL EXAMINATION: Admission Vital Signs: Temperature 97.6, heart rate is 71, respiratory rate is 16, oxygen saturation is 100% on room air, blood pressure is 103/79. General: The patient is a pleasant middle-aged gentleman, lying in bed, in no acute distress, appears younger than stated age. HEENT: Pupils are equal. Moist mucous membranes. CVS: Normal S1 and S2. Regular rate and rhythm. Chest: Breath sounds present bilaterally with no added sounds. Abdomen is soft. Bowel sounds are present. Extremities: No edema. Neuro: He is alert and oriented x3. Able to move all 4 extremities. DIET: The patient is n.p.o. with an NG tube in place to low wall suction. ACTIVITIES: As tolerated. DISPOSITION: To [facility] [place]. STATUS WHILE IN THE HOSPITAL: Inpatient. CONDITION AT THE TIME OF DISCHARGE: Fair. Please keep in mind this is a summarized version of this patient's hospital stay. If you need more information , please do not hesitate to call me at [phone] or please obtain the full medical records. TIME SPENT: Approximately 50 minutes was spent to complete this discharge. [id number]/[facility] #: [id number] HERMAN
[2019-05-06] MEDS: D5LR 20 MEQ KCL 1000 ML BAG* 1,000 ML IV SCH ×2 (02:40→15:13)
[2019-05-06 04:41] LABS: ABS Eosinophils 0.1 10^3/ul (0-0.6); ABS Lymphocytes 1.2 10^3/ul (1.0-4.8); ABS Monocytes 0.5 10^3/ul (0-0.8); ABS Neutrophils 3.8 10^3/ul (1.5-7.7); Eosinophil % 1.3 %; Hematocrit 34 % (42-52); Hemoglobin 12.3 g/dL (14.0-18.0); Lymphocyte % 21.7 %; Mean Corpuscular HGB Conc 36 g/dL (31-36); Mean Corpuscular Hemoglobin 31 pg (27-31); Mean Corpuscular Volume 87 fL (80-94); Mean Platelet Volume 8.9 fL (7.4-10.4); Platelet Count 155 10^3/uL (150-450); Red Blood Count 3.93 10^6 /uL (4.18-5.48); Red Cell Distribution Width 13 % (10-15); White Blood Count 5.6 10^3/uL (3.5-10.8)
[2019-05-06] MEDS: Pantoprazole IV* 40 MG IV SCH ×2 (07:50→20:08)
--- NOTE | 2019-05-06 14:17 | PN ---
Subjective Date of Service: 05/06/19 Interval History: HOSPITALIST PROGRESS NOTE Patient seen and examined at bedside. Care reviewed and d/w Heike Colbert RN. He offers no new complaints today. Anxious for transfer. No abdominal pain or nausea. Family History: Unchanged from Admission Social History: Unchanged from Admission Past Medical History: Unchanged from Admission Objective Active Medications: Potassium Cl/Dextrose/Lact Ringer's (D5lr 20 Meq Kcl 1000 Ml Bag*) 1,000 mls @ 100 mls/hr IV PER RATE [facility] Last Admin: 05/06/19 02:40 Dose: 100 mls/hr Lorazepam (Ativan Inj*) 0.5 mg IV PUSH Q4H PRN PRN Reason: ANXIETY Last Admin: 05/04/19 19:22 Dose: 0.5 mg Miscellaneous (Ativan Pyxis Devi) 1 ea N/A .ATIVAN IV DEVI PRN PRN Reason: PYXIS DEVI Ondansetron HCl (Zofran Inj*) 4 mg IV Q6H PRN PRN Reason: NAUSEA Pantoprazole Sodium (Protonix Iv*) 40 mg IV Q12H [facility] Last Admin: 05/06/19 07:50 Dose: 40 mg Vital Signs - 8 hr 05/06/19 05/06/19 05/06/19 07:15 07:54 11:15 Temperature 97.5 F 98.6 F Pulse Rate 68 79 Respiratory 18 18 18 Rate Blood Pressure 120/75 119/78 (mmHg) O2 Sat by Pulse 98 98 97 Oximetry Oxygen Devices in Use Now: None Appearance: Middle aged gentleman sitting up in a chair, watching a movie on his cell phone, in NAD Eyes: No Scleral Icterus Ears/Nose/Mouth/Throat: Mucous Membranes Moist Neck: Trachea Midline Respiratory: Symmetrical Chest Expansion and Respiratory Effort, Clear to Auscultation Cardiovascular: RRR - Normal S1 and S2 Abdominal: NL Sounds; No Tenderness; No Distention Neurological: Alert and Oriented x 3, NL Muscle Strength and Tone - Nutrition: Malnutrition Diagnosis/Plan Malnutrition Assessment by Registered Dietitian: Malnutrition Assessment Clinical Characteristics Acute,Severe Malnutrition Assessment: -23 lb, 13.5% wt loss x < 1 mo Criteria -decrease in oral intake (</=50% of ENN x > 5 days) Malnutrition Assessment: Pt is NPO at this time. Will assess need for Interventions nourishments once pt is able to resume po intake . Malnutrition Assessment: Goals 1. pt will tolerate post-op diet progression without adverse GI effects 2. adequate po intake to maintain lean body mass and hydration without add'l wt loss 3. achieve and maintain serum electrolytes levels WNL 4. achieve and maintain regulated bowel pattern without c/o constipation (or diarrhea) Result Diagrams: 05/06/19 04:36 05/05/19 07:46 Microbiology and Other Data: Microbiology 05/04/19 14:40 CLOtest - Final Gastric Antrum 05/03/19 17:00 Urine Culture - Final Urine No Growth (<1,000 CFU/mL) Assess/Plan/Problems-Billing Assessment: Mr Gómez is a 59yo M with PMH of HTN, HLD, glucose intolerance, who presented to ED with c/o recurrent N/V, > 20 lbs weight loss, found to have gastric outlet obstruction. - Patient Problems (1) Gastric outlet obstruction Comment: - EGD showed 6-7cm antral mass. 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 - CT chest negative for metastatic disease. - Oncology input appreciated. - Patient and family request transfer to [facility] - patient accepted by Dr Nestor Duarte, awaiting bed availability. - Keep NPO with NGT to LWS. NGT has drained 175ml so far today. (2) Hemoglobin drop Comment: - Endoscopy showed 6-7cm antral tumor with ulcer, but no signs of bleeding. - Hb was 17 on admission representing severe hemoconcentration, now down to 12, likely secondary to IVF resuscitation. - Will continue to monitor. (3) Severe protein-calorie malnutrition Comment: - Acute Severe Malnutrition as evidenced by 23 lb weight loss in 1 month, and decrease in oral intake (</=50% of ENN x > 5 days). - Prealbumin is 17. - As per d/w surgeon, he may get a gastric stent first and would be able to eat. (4) ALTON (acute kidney injury) Comment: - Pre renal in the setting of dehydration - resolved. - Continue IVF. (5) Anxiety Comment: - Continue Lorazepam PRN. (6) DVT prophylaxis Comment: - Resume Heparin and continue SCDs. (7) Full code status Status and Disposition: Inpatient. Awaiting transfer to [facility]. updated at bedside.
[2019-05-06] MEDS ORDERED: Phenol 1.4% Spray* 177 ML BTL MT PRN (21:22)
[2019-05-06] MEDS ORDERED: Benzocaine/Menthol LOZ* 1 LOZENGE MT PRN (21:22)
[2019-05-07] MEDS: D5LR 20 MEQ KCL 1000 ML BAG* 1,000 ML IV SCH ×2 (01:25→12:33)
[2019-05-07] MEDS: Pantoprazole IV* 40 MG IV SCH ×2 (07:22→20:54)
[2019-05-07 07:50] LABS: ABS Eosinophils 0.1 10^3/ul (0-0.6); ABS Lymphocytes 1.6 10^3/ul (1.0-4.8); ABS Monocytes 0.4 10^3/ul (0-0.8); ABS Neutrophils 2.9 10^3/ul (1.5-7.7); Eosinophil % 1.8 %; Hematocrit 34 % (42-52); Hemoglobin 12.3 g/dL (14.0-18.0); Lymphocyte % 31.2 %; Mean Corpuscular HGB Conc 36 g/dL (31-36); Mean Corpuscular Hemoglobin 31 pg (27-31); Mean Corpuscular Volume 86 fL (80-94); Nucleated Red Blood Cells % 0.1; Platelet Count 162 10^3/uL (150-450); Red Blood Count 3.97 10^6 /uL (4.18-5.48); Red Cell Distribution Width 14 % (10-15)
[2019-05-07 08:18] LABS: Albumin 3.4 g/dL (3.2-5.2); Albumin/Globulin Ratio 1.2 (1-3); BUN/Creatinine Ratio 13.3 (8-20); Calcium 8.4 mg/dL (8.6-10.3); EGFR African American 95.1 (>60); EGFR Non-African American 78.6 (>60); Globulin 2.8 g/dL (2-4); Potassium 4.1 mmol/L (3.5-5.0); Total Bilirubin 0.7 mg/dL (0.2-1.0); Total Protein 6.2 g/dL (6.4-8.9)
[2019-05-08] MEDS: D5LR 20 MEQ KCL 1000 ML BAG* 1,000 ML IV SCH (00:31)
--- NOTE | 2019-05-08 01:25 | DS ---
DISCHARGE SUMMARY: ADDENDUM: For details about the patient's hospital stay, I refer you to my discharge summary from 03/05/20. Over the past 2 days, the patient had no change to his condition. He is being accepted to [facility]. He has received the insurance approval and the plan is for him to be transported on 05/08/19 at 7 a.m. I did contact the surgeon hospital receptionist at [facility], Dr. Baez, who gave sign out over the phone. The patient and the were updated about the plan. Please note that diet, activity, disposition, studies while in the hospital, condition at the time of discharge are all unchanged from my prior dictations. [id number]/[facility] #: [id number] HERMAN
--- NOTE | 2019-05-08 05:54 | PN ---
Hospitalist Progress Note Date of Service: 05/08/[address] Nevarez at [facility].
[2019-05-08] MEDS: Pantoprazole IV* 40 MG IV SCH (06:10)
[2019-05-08 06:24] VITALS: BP 131/66
[2019-05-08] MEDS ORDERED: D5LR 1000 ML BAG* 1,000 ML IV SCH (07:00)
== END 2019-05-08 06:45 | disposition short-term general hospital (02) | DRG 374 ==
LOC: ED 13:27 → MED 19:20
PROVIDERS: ADMIT Nurse Practitioner Family; ATTEND Internal Medicine
PROC: 0DD78ZX Extraction of Stomach, Pylorus, Via Natural or Artificial Opening Endoscopic, Diagnostic (ICD-10-PCS; 2019-05-04)
PROC: 0D9670Z Drainage of Stomach with Drainage Device, Via Natural or Artificial Opening (ICD-10-PCS; 2019-05-04)
PROC: 0DD68ZX Extraction of Stomach, Via Natural or Artificial Opening Endoscopic, Diagnostic (ICD-10-PCS; principal; 2019-05-04 14:00)
DX: C16.3 Malignant neoplasm of pyloric antrum (principal); E43 Unspecified severe protein-calorie malnutrition; K31.1 Adult hypertrophic pyloric stenosis; N17.9 Acute kidney failure, unspecified; I10 Essential (primary) hypertension; E78.5 Hyperlipidemia, unspecified; D18.09 Hemangioma of other sites; R73.03 Prediabetes; E74.39 Other disorders of intestinal carbohydrate absorption; K76.0 Fatty (change of) liver, not elsewhere classified; K29.50 Unspecified chronic gastritis without bleeding; Z83.3 Family history of diabetes mellitus; Z80.42 Family history of malignant neoplasm of prostate; Z79.899 Other long term (current) drug therapy; Z80.0 Family history of malignant neoplasm of digestive organs
CPT/HCPCS: 36415; 71045; 71260; 74177; 80048; 80053; 81003; 81015; 83605; 83690; 84134; 85025; 85610; 85730; 86140; 87077; 87086; 88305; 88341; 88342; 88360; 96361; 96374; 99284; A9270-GY; J0330; J1100; J1644; J2060; J2250; J2405; J2704; J3010; Q9967

== ENCOUNTER 2020-09-08 22:12 | Inpatient (IN) ==
[2020-09-08] MEDS ORDERED: cefTRIAXone 1 gm/50 mL NS BAG 1 GM/50 ML BAG IV ONE (23:01)
[2020-09-08] MEDS ORDERED: Azithromycin 500 mg/250 ml NS 500 MG/250 ML BAG IVPB ONE (23:01)
[2020-09-08 23:18] LABS: ABS Basophils 0.1 10^3/ul (0-0.2); ABS Lymphocytes 0.5 10^3/ul (1.0-4.8); ABS Monocytes 0.7 10^3/ul (0-0.8); ABS Neutrophils 15.5 10^3/ul (1.5-7.7); Hematocrit 36 % (42-52); Hemoglobin 11.9 g/dL (14.0-18.0); Lymphocyte % 3.1 %; Mean Corpuscular HGB Conc 33 g/dL (31-36); Mean Corpuscular Hemoglobin 28 pg (27-31); Mean Corpuscular Volume 83 fL (80-94); Mean Platelet Volume 7.5 fL (7.4-10.4); Platelet Count 309 10^3/uL (150-450); Red Blood Count 4.28 10^6 /uL (4.18-5.48); Red Cell Distribution Width 15 % (10-15); White Blood Count 16.8 10^3/uL (3.5-10.8)
[2020-09-08 23:34] LABS: Albumin 3.7 g/dL (3.2-5.2); Albumin/Globulin Ratio 1.1 (1-3); Calcium 8.6 mg/dL (8.6-10.3); EGFR African American 26.5 (>60); EGFR Non-African American 21.9 (>60); Globulin 3.4 g/dL (2-4); Total Bilirubin 0.6 mg/dL (0.2-1.0); Total Protein 7.1 g/dL (6.4-8.9)
[2020-09-08 23:36] LABS: Potassium 5.1 mmol/L (3.5-5.0)
[2020-09-09 00:14] LABS: Urine Appearance Cloudy; Urine Bacteria Absent (Absent); Urine Bilirubin Negative (Negative); Urine Blood 3+ (Negative); Urine Glucose 1+(50 mg/dL) (Negative); Urine Ketones Negative (Negative); Urine Nitrite Negative (Negative); Urine Protein 2+(100 mg/dL) (Negative); Urine Red Blood Cell 3+(>10/hpf) (Absent); Urine Urobilinogen Negative (Negative); Urine White Blood Cell 3+(>20/hpf) (Absent)
[2020-09-09 00:41] LABS: Urine Color Red
[2020-09-09] MEDS ORDERED: NS 0.9% 1000 ml BAG 1,000 ML IV SCH (02:45)
[2020-09-09] MEDS ORDERED: Dextrose 50% Syringe 50 ml 25 GM/50 ML SYRINGE IV PUSH PRN (03:39)
[2020-09-09 04:37] LABS: C Reactive Protein 89.51 mg/L (<8.01)
[2020-09-09] MEDS: Heparin 5000 UNITS/ML 1 mL VIAL SUBCUT SCH ×3 (04:42→23:51)
[2020-09-09 05:37] LABS: ABS Lymphocytes 0.9 10^3/ul (1.0-4.8); ABS Monocytes 0.6 10^3/ul (0-0.8); ABS Neutrophils 13.7 10^3/ul (1.5-7.7); Eosinophil % 0.3 %; Hematocrit 31 % (42-52); Hemoglobin 10.6 g/dL (14.0-18.0); Lymphocyte % 6.1 %; Mean Corpuscular HGB Conc 34 g/dL (31-36); Mean Corpuscular Hemoglobin 28 pg (27-31); Mean Corpuscular Volume 83 fL (80-94); Mean Platelet Volume 7.6 fL (7.4-10.4); Platelet Count 269 10^3/uL (150-450); Red Blood Count 3.75 10^6 /uL (4.18-5.48); Red Cell Distribution Width 15 % (10-15); White Blood Count 15.4 10^3/uL (3.5-10.8)
[2020-09-09 05:54] LABS: Calcium 8.1 mg/dL (8.6-10.3); EGFR African American 27.1 (>60); EGFR Non-African American 22.4 (>60)
[2020-09-09] MEDS: Pancrelipase 5,000 units CAP PO SCH ×3 (08:29→17:01)
[2020-09-09 11:06] LABS: Magnesium 1.8 mg/dL (1.9-2.7)
[2020-09-09] MEDS: cefTRIAXone 1 gm/50 mL NS BAG 1 GM/50 ML BAG IVPB SCH (23:51)
[2020-09-10] MEDS: Azithromycin 500 mg/250 ml NS 500 MG/250 ML BAG IVPB SCH (00:40)
[2020-09-10] MEDS ORDERED: hydrALAZINE 20 mg/ml 1 ML Vial IV IV SLOW PU ONE (03:32)
[2020-09-10] MEDS ORDERED: hydrALAZINE 20 mg/ml 1 ML Vial IV ONE (03:36)
[2020-09-10] MEDS ORDERED: Ondansetron 4 mg VIAL 2 MG/ML 2 ml VIAL IV PRN (04:16)
[2020-09-10] MEDS: Heparin 5000 UNITS/ML 1 mL VIAL SUBCUT SCH ×3 (05:40→23:28)
[2020-09-10] MEDS: Metoprolol Tartrate 5 mg VIAL 5 ml VIAL (1 mg/ml) IV PRN ×3 (05:55→23:57)
[2020-09-10 07:58] LABS: Hematocrit 31 % (42-52); Hemoglobin 10.6 g/dL (14.0-18.0); Mean Corpuscular HGB Conc 34 g/dL (31-36); Mean Corpuscular Hemoglobin 28 pg (27-31); Mean Corpuscular Volume 83 fL (80-94); Mean Platelet Volume 8.2 fL (7.4-10.4); Platelet Count 245 10^3/uL (150-450); Red Blood Count 3.74 10^6 /uL (4.18-5.48); Red Cell Distribution Width 16 % (10-15); White Blood Count 11.1 10^3/uL (3.5-10.8)
[2020-09-10] MEDS: Pancrelipase 5,000 units CAP PO SCH ×3 (08:02→16:55)
[2020-09-10 08:09] LABS: Calcium 8.4 mg/dL (8.6-10.3); EGFR African American 32.6 (>60); EGFR Non-African American 26.9 (>60); Magnesium 1.6 mg/dL (1.9-2.7); Potassium 4.3 mmol/L (3.5-5.0)
[2020-09-10] MEDS ORDERED: Magnesium Sulf 4 GM/100 ML IV 4,000 MG/100 ML BAG IVPB ONE (09:30)
[2020-09-10] MEDS ORDERED: HYDROmorphone 0.5 MG/0.5 ML SYRINGE IV ONE (11:27)
[2020-09-10] MEDS ORDERED: HYDROmorphone 0.5 MG/0.5 ML SYRINGE IV SLOW PU PRN (14:48)
[2020-09-10] MEDS: Senna TAB 8.6 mg TAB PO PRN (21:51)
[2020-09-10] MEDS: cefTRIAXone 1 gm/50 mL NS BAG 1 GM/50 ML BAG IVPB SCH (23:28)
[2020-09-11] MEDS: Azithromycin 500 mg/250 ml NS 500 MG/250 ML BAG IVPB SCH (00:22)
[2020-09-11 02:50] LABS: ABS Lymphocytes 0.8 10^3/ul (1.0-4.8); ABS Monocytes 0.5 10^3/ul (0-0.8); ABS Neutrophils 11.3 10^3/ul (1.5-7.7); Eosinophil % 0.3 %; Hematocrit 34 % (42-52); Hemoglobin 11.4 g/dL (14.0-18.0); Lymphocyte % 6.4 %; Mean Corpuscular HGB Conc 34 g/dL (31-36); Mean Corpuscular Hemoglobin 28 pg (27-31); Mean Corpuscular Volume 83 fL (80-94); Mean Platelet Volume 7.6 fL (7.4-10.4); Platelet Count 303 10^3/uL (150-450); Red Blood Count 4.05 10^6 /uL (4.18-5.48); Red Cell Distribution Width 15 % (10-15); White Blood Count 12.6 10^3/uL (3.5-10.8)
[2020-09-11 03:16] LABS: Albumin 3.5 g/dL (3.2-5.2); Albumin/Globulin Ratio 1.1 (1-3); Calcium 8.8 mg/dL (8.6-10.3); EGFR African American 21.3 (>60); EGFR Non-African American 17.6 (>60); Globulin 3.3 g/dL (2-4); Potassium 4.3 mmol/L (3.5-5.0); Total Bilirubin 0.3 mg/dL (0.2-1.0); Total Protein 6.8 g/dL (6.4-8.9)
[2020-09-11] MEDS: Metoprolol Tartrate 5 mg VIAL 5 ml VIAL (1 mg/ml) IV PRN (05:54)
[2020-09-11] MEDS: Heparin 5000 UNITS/ML 1 mL VIAL SUBCUT SCH ×2 (05:55→12:53)
[2020-09-11] MEDS: Cefepime 1 GM in Dextrose 1 GM/50 ML BAG IV SCH ×2 (06:25→19:43)
[2020-09-11 06:52] LABS: ABS Lymphocytes 0.7 10^3/ul (1.0-4.8); ABS Monocytes 0.6 10^3/ul (0-0.8); ABS Neutrophils 11.1 10^3/ul (1.5-7.7); Eosinophil % 0.1 %; Hematocrit 35 % (42-52); Hemoglobin 11.8 g/dL (14.0-18.0); Lymphocyte % 5.4 %; Mean Corpuscular HGB Conc 33 g/dL (31-36); Mean Corpuscular Hemoglobin 28 pg (27-31); Mean Corpuscular Volume 84 fL (80-94); Mean Platelet Volume 7.7 fL (7.4-10.4); Platelet Count 301 10^3/uL (150-450); Red Cell Distribution Width 15 % (10-15); White Blood Count 12.4 10^3/uL (3.5-10.8)
[2020-09-11 07:11] LABS: Calcium 8.9 mg/dL (8.6-10.3); EGFR African American 19.5 (>60); EGFR Non-African American 16.1 (>60); Magnesium 2.8 mg/dL (1.9-2.7); Potassium 4.4 mmol/L (3.5-5.0)
[2020-09-11 10:13] LABS: Urine Creatinine Concentration 33.7 mg/dL; Urine Potassium Concentration 21.9 mmol/L
[2020-09-11] MEDS: Pancrelipase 5,000 units CAP PO SCH ×3 (11:30→19:31)
[2020-09-11] MEDS: NS 0.9% 1000 ml BAG 1,000 ML IV SCH (13:25)
[2020-09-11 13:40] LABS: Hematocrit 34 % (42-52); Hemoglobin 11.3 g/dL (14.0-18.0); Mean Corpuscular HGB Conc 34 g/dL (31-36); Mean Corpuscular Hemoglobin 28 pg (27-31); Mean Corpuscular Volume 83 fL (80-94); Mean Platelet Volume 7.3 fL (7.4-10.4); Platelet Count 292 10^3/uL (150-450); Red Blood Count 4.06 10^6 /uL (4.18-5.48); Red Cell Distribution Width 15 % (10-15); White Blood Count 12.6 10^3/uL (3.5-10.8)
[2020-09-11 14:02] LABS: Calcium 8.8 mg/dL (8.6-10.3); EGFR African American 17.2 (>60); EGFR Non-African American 14.2 (>60); Potassium 4.4 mmol/L (3.5-5.0)
[2020-09-11] MEDS ORDERED: Lidocaine 2% PF 5 ML VIAL ONE (15:31)
[2020-09-11] MEDS ORDERED: fentaNYL 100 mcg/2 ml 50 MCG/ML VIAL ONE (15:31)
[2020-09-11] MEDS ORDERED: Propofol 10 MG/ML 20 ML BTL ONE (15:31)
[2020-09-11] MEDS ORDERED: Ondansetron 4 mg VIAL 2 MG/ML 2 ml VIAL ONE (15:31)
[2020-09-11] MEDS ORDERED: Dexamethasone IV 4 MG/ML VIAL 1 ml VIAL ONE (15:31)
[2020-09-11] MEDS ORDERED: Iohexol 180 (CONTRAST) 20 ML SDV IV ONE (15:33)
[2020-09-11] MEDS ORDERED: Midazolam 2 mg/2 ml VIAL 1 mg/ml 2 ml VIAL (2 mg) ONE (15:59)
[2020-09-11] MEDS ORDERED: Phenylephrine 40 mcg/mL 10mL (400mcg) SYRINGE ONE (17:05)
[2020-09-11] MEDS ORDERED: Phenylephrine IV 10 MG/ML 1 ml VIAL ONE (17:18)
[2020-09-11] MEDS ORDERED: Ondansetron 4 mg VIAL 2 MG/ML 2 ml VIAL IV PRN (17:40)
[2020-09-11] MEDS ORDERED: fentaNYL 100 mcg/2 ml 50 MCG/ML VIAL IV PRN (17:40)
[2020-09-11] MEDS ORDERED: HYDROcodone/ACETAMIN 5/325 mg TAB PO PRN (17:40)
[2020-09-11] MEDS ORDERED: Naloxone 0.4 mg VIAL 0.4 mg/ml 1 ml VIAL IV PRN (17:40)
[2020-09-11] MEDS ORDERED: Metoclopramide 5 MG/ML VIAL (10 mg) IV PRN (17:40)
[2020-09-12] MEDS: Azithromycin 500 mg/250 ml NS 500 MG/250 ML BAG IVPB SCH (00:16)
[2020-09-12] MEDS: Heparin 5000 UNITS/ML 1 mL VIAL SUBCUT SCH ×4 (00:18→20:12)
[2020-09-12] MEDS: NS 0.9% 1000 ml BAG 1,000 ML IV SCH ×2 (06:29→17:47)
[2020-09-12] MEDS: Cefepime 1 GM in Dextrose 1 GM/50 ML BAG IV SCH ×2 (06:30→17:51)
[2020-09-12 07:43] LABS: Hematocrit 29 % (42-52); Hemoglobin 10.1 g/dL (14.0-18.0); Mean Corpuscular HGB Conc 35 g/dL (31-36); Mean Corpuscular Hemoglobin 29 pg (27-31); Mean Corpuscular Volume 83 fL (80-94); Mean Platelet Volume 7.9 fL (7.4-10.4); Platelet Count 258 10^3/uL (150-450); Red Blood Count 3.53 10^6 /uL (4.18-5.48); Red Cell Distribution Width 16 % (10-15); White Blood Count 7.8 10^3/uL (3.5-10.8)
[2020-09-12 07:58] LABS: C Reactive Protein 149.26 mg/L (<8.01); Calcium 8.5 mg/dL (8.6-10.3); EGFR African American 29.5 (>60); EGFR Non-African American 24.4 (>60); Magnesium 2.2 mg/dL (1.9-2.7); Potassium 4.4 mmol/L (3.5-5.0)
[2020-09-12] MEDS: Pancrelipase 5,000 units CAP PO SCH ×4 (10:53→17:40)
[2020-09-12] MEDS: Senna TAB 8.6 mg TAB PO PRN (20:12)
[2020-09-13] MEDS: NS 0.9% 1000 ml BAG 1,000 ML IV SCH (05:14)
[2020-09-13] MEDS: Cefepime 1 GM in Dextrose 1 GM/50 ML BAG IV SCH (05:14)
[2020-09-13] MEDS: Heparin 5000 UNITS/ML 1 mL VIAL SUBCUT SCH ×2 (05:18→12:22)
[2020-09-13 07:08] LABS: ABS Eosinophils 0.1 10^3/ul (0-0.6); ABS Lymphocytes 1.1 10^3/ul (1.0-4.8); ABS Monocytes 0.4 10^3/ul (0-0.8); Eosinophil % 1.2 %; Hematocrit 29 % (42-52); Lymphocyte % 23.1 %; Mean Corpuscular HGB Conc 35 g/dL (31-36); Mean Corpuscular Hemoglobin 29 pg (27-31); Mean Corpuscular Volume 83 fL (80-94); Mean Platelet Volume 7.7 fL (7.4-10.4); Platelet Count 249 10^3/uL (150-450); Red Blood Count 3.51 10^6 /uL (4.18-5.48); Red Cell Distribution Width 15 % (10-15); White Blood Count 4.6 10^3/uL (3.5-10.8)
[2020-09-13 07:23] LABS: Calcium 8.3 mg/dL (8.6-10.3); EGFR African American 54.6 (>60); EGFR Non-African American 45.1 (>60); Magnesium 1.6 mg/dL (1.9-2.7); Potassium 3.9 mmol/L (3.5-5.0)
[2020-09-13] MEDS: Pancrelipase 5,000 units CAP PO SCH ×2 (08:30→12:21)
[2020-09-13 09:17] VITALS: BP 161/68
[2020-09-13] MEDS ORDERED: Magnesium Sulfate 2 gm BAG 2 GM/50 ML BAG IVPB ONE (12:42)
== END 2020-09-13 15:45 | disposition home or self-care (01) | DRG 854 ==
LOC: ED 22:12 → MED 09-09 00:56
PROVIDERS: ADMIT Student in an Organized Health Care Education/Training Program; ATTEND Internal Medicine

== ENCOUNTER 2020-12-21 11:04 | Inpatient (IN) ==
[2020-12-21] MEDS ORDERED: Lidocaine 1% VIAL 10 MG/ML VIAL INJ ONE (11:42)
[2020-12-21 12:12] LABS: Hematocrit 35 % (42-52); Hemoglobin 11.3 g/dL (14.0-18.0); Mean Corpuscular HGB Conc 32 g/dL (31-36); Mean Corpuscular Hemoglobin 28 pg (27-31); Mean Corpuscular Volume 87 fL (80-94); Mean Platelet Volume 8.5 fL (7.4-10.4); Platelet Count 173 10^3/uL (150-450); Red Blood Count 4.01 10^6 /uL (4.18-5.48); Red Cell Distribution Width 17 % (10-15); White Blood Count 58.5 10^3/uL (3.5-10.8)
[2020-12-21 12:27] LABS: Activated Partial Thrombo Time 23.4 seconds (26.0-38.0); Albumin 3.8 g/dL (3.2-5.2); Albumin/Globulin Ratio 1.2 (1-3); Calcium 8.6 mg/dL (8.6-10.3); EGFR African American 103.2 (>60); EGFR Non-African American 85.3 (>60); Globulin 3.1 g/dL (2-4); INR 0.96 (0.86-1.15); Potassium 3.9 mmol/L (3.5-5.0); Total Bilirubin 0.4 mg/dL (0.2-1.0); Total Protein 6.9 g/dL (6.4-8.9)
[2020-12-21 13:21] LABS: ABS Basophils 0.3 10^3/ul (0-0.2); ABS Lymphocytes 1.9 10^3/ul (1.0-4.8); ABS Monocytes 0.2 10^3/ul (0-0.8); Lymphocyte % 3.3 %
[2020-12-21 15:55] LABS: Troponin I 0.01 ng/mL (<0.03)
[2020-12-21 16:09] LABS: Urine Appearance Cloudy; Urine Bilirubin Negative (Negative); Urine Blood 3+ (Negative); Urine Color Straw; Urine Glucose Negative (Negative); Urine Ketones Negative (Negative); Urine Nitrite Negative (Negative); Urine Protein 1+(30 mg/dL) (Negative); Urine Specific Gravity 1.012 (1.002-1.030); Urine Urobilinogen Negative (Negative)
[2020-12-21 16:14] LABS: C Reactive Protein 5.83 mg/L (<8.01)
[2020-12-21 16:18] LABS: Urine Bacteria 1+ (Absent); Urine Red Blood Cell 3+(>10/hpf) (Absent); Urine White Blood Cell 2+(11-20/hpf) (Absent)
[2020-12-21 16:24] LABS: Rapid COVID-19 Molecular Undetected (Undetected)
[2020-12-21] MEDS: Pancrelipase 5,000 units CAP PO SCH (17:23)
[2020-12-21] MEDS: Morphine 2 MG/ML SYRINGE IV PRN (21:35)
[2020-12-22 06:57] LABS: Hematocrit 31 % (42-52); Hemoglobin 10.5 g/dL (14.0-18.0); Mean Corpuscular HGB Conc 33 g/dL (31-36); Mean Corpuscular Hemoglobin 29 pg (27-31); Mean Corpuscular Volume 86 fL (80-94); Mean Platelet Volume 8.2 fL (7.4-10.4); Platelet Count 150 10^3/uL (150-450); Red Blood Count 3.66 10^6 /uL (4.18-5.48); Red Cell Distribution Width 18 % (10-15); White Blood Count 68.6 10^3/uL (3.5-10.8)
[2020-12-22] MEDS: Morphine 2 MG/ML SYRINGE IV PRN (07:11)
[2020-12-22 07:16] LABS: ABS Basophils 0.2 10^3/ul (0-0.2); ABS Lymphocytes 1.9 10^3/ul (1.0-4.8); ABS Monocytes 0.2 10^3/ul (0-0.8); ABS Neutrophils 66.2 10^3/ul (1.5-7.7); Eosinophil % 0.1 %; Lymphocyte % 2.8 %
[2020-12-22] MEDS: Pancrelipase 5,000 units CAP PO SCH ×4 (08:42→17:41)
[2020-12-22] MEDS ORDERED: Potassium Chlor 20 meq TAB.ER PO SCH (09:00)
[2020-12-22] MEDS ORDERED: FILGRASTIM SNDZ 480 MCG/0.8 ML SUBCUT SCH (09:00)
[2020-12-22 15:28] VITALS: BP 109/65
== END 2020-12-22 19:45 | disposition home or self-care (01) | DRG 200 ==
LOC: ED 11:04 → SSU 14:57
PROVIDERS: ADMIT Hospitalist; ATTEND Hospitalist

== ENCOUNTER 2021-03-08 08:42 | Inpatient (IN) ==
[2021-03-08] MEDS ORDERED: NF:Pancrelipase 12,000 units (NF) PO PRN (09:34)
[2021-03-08 10:46] LABS: Hematocrit 30 % (42-52); Hemoglobin 9.8 g/dL (14.0-18.0); Mean Corpuscular HGB Conc 33 g/dL (31-36); Mean Corpuscular Hemoglobin 28 pg (27-31); Mean Corpuscular Volume 85 fL (80-94); Platelet Count 195 10^3/uL (150-450); Red Blood Count 3.57 10^6 /uL (4.18-5.48); Red Cell Distribution Width 18 % (10-15); White Blood Count 77.2 10^3/uL (3.5-10.8)
[2021-03-08 10:49] LABS: ABS Basophils 0.3 10^3/ul (0-0.2); ABS Lymphocytes 1.3 10^3/ul (1.0-4.8); ABS Monocytes 0.7 10^3/ul (0-0.8); Lymphocyte % 1.7 %
[2021-03-08 11:06] LABS: Albumin 3.3 g/dL (3.2-5.2); Albumin/Globulin Ratio 0.9 (1-3); Calcium 8.4 mg/dL (8.6-10.3); Globulin 3.5 g/dL (2-4); Potassium 4.4 mmol/L (3.5-5.0); Total Bilirubin 0.3 mg/dL (0.2-1.0); Total Protein 6.8 g/dL (6.4-8.9); eGFR CKD-EPI 98.1 (>60)
[2021-03-08] MEDS: Pancrelipase 5,000 units CAP PO SCH ×2 (13:24→18:17)
[2021-03-08 16:28] LABS: Body Fluid Source Pleural Fluid
[2021-03-08 17:17] LABS: Body Fluid Appearance Bloody; Body Fluid Color Red
[2021-03-08] MEDS: HYDROmorphone 1 MG/1 ML SYRINGE IV SLOW PU PRN ×2 (18:16→21:16)
[2021-03-08 20:59] LABS: Body Fluid Mono 72 %; Body Fluid Other Cells 3; Body Fluid Total Cells Counted 200
[2021-03-08 21:59] LABS: Body Fluid WBC 7500 /mcL
[2021-03-09] MEDS: HYDROmorphone 1 MG/1 ML SYRINGE IV SLOW PU PRN ×2 (00:44→05:15)
[2021-03-09] MEDS: Pancrelipase 5,000 units CAP PO SCH ×3 (08:22→16:57)
[2021-03-09] MEDS: Potassium Chlor 20 meq TAB.ER PO SCH (08:23)
[2021-03-10] MEDS: Pancrelipase 5,000 units CAP PO SCH ×3 (07:34→16:42)
[2021-03-10] MEDS: Potassium Chlor 20 meq TAB.ER PO SCH (09:27)
[2021-03-10 12:14] LABS: Lactate Dehydrogenase, BF 470 U/L
[2021-03-10 13:05] LABS: Glucose, BF 122 mg/dL
[2021-03-10 13:07] LABS: Fluid Type, Protein, Total PLEURAL
[2021-03-10 13:08] LABS: Albumin, BF 2.8 g/dL; Fluid Type, Albumin PLEURAL
[2021-03-10] MEDS ORDERED: Iodixanol (CONTRAST) 320 MG/ML 100 ML SDV IV ONE (14:34)
[2021-03-11] MEDS: Pancrelipase 5,000 units CAP PO SCH ×3 (07:47→16:34)
[2021-03-11] MEDS: Potassium Chlor 20 meq TAB.ER PO SCH (09:24)
[2021-03-11] MEDS ORDERED: Piperacillin/Tazobac ADVAN 3.375 GM in NS 0.9% 100 ml BAG 100 ML IV ONE (12:22)
[2021-03-11] MEDS ORDERED: Zosyn per Pharmacy NOTE FOLLOW UP SCH (13:00)
[2021-03-11] MEDS: ZOSYN 3.375 GM Q8H per EXTENDED INFUSION IV SCH (17:40)
[2021-03-11] MEDS ORDERED: Senna TAB 8.6 mg TAB PO ONE (20:45)
[2021-03-12] MEDS: ZOSYN 3.375 GM Q8H per EXTENDED INFUSION IV SCH ×2 (00:58→09:58)
[2021-03-12] MEDS: Pancrelipase 5,000 units CAP PO SCH ×3 (08:23→17:33)
[2021-03-12 09:06] LABS: INR 1.05 (0.86-1.15)
[2021-03-12] MEDS: Potassium Chlor 20 meq TAB.ER PO SCH (09:59)
[2021-03-12] MEDS ORDERED: fentaNYL 100 mcg/2 ml 50 MCG/ML VIAL ONE (11:20)
[2021-03-12 17:05] VITALS: BP 110/71
== END 2021-03-12 18:40 | disposition home or self-care (01) | DRG 186 ==
LOC: CHOA 08:42 → SSU 09:27
PROVIDERS: ADMIT Internal Medicine Hematology & Oncology; ATTEND Internal Medicine Hematology & Oncology